=== PATIENT | male | born 1955 | race Caucasian/White ===

== ENCOUNTER 2017-09-29 18:13 | Observation (INO) | payer MEDICARE ==
[2017-09-29 18:53] LABS: BASOPHIL % 0.3 % (0.0-0.4); Basophil (Absolute #) 0.01 (0-0.4); Eosinophil % 0.3 % (0.00-5.0); Eosinophil (Absolute #) 0.01 (0-0.5); Granulocyte Absolute (ANC) 1.11 (1.4-6.9); Granulocytes % 35.8 % (36.0-66.0); Hematocrit 35.8 % (42-50); Lymphocyte (Absolute #) 1.01 (1.0-4.6); Lymphocytes % 32.6 % (24.0-44.0); Mean Cell Volume 84.4 fl (78-100); Mean Corpuscular Hemoglobin 30.7 pg (26-32); Mean Corpuscular Hgb Concent. 36.3 g/dl (32-36); Mean Platelet Volume 10.5 fl (6-9.5); Monocyte (Absolute #) 0.96 (0.0-1.3); Platelet Count 139 K/mm3 (150-450); Red Blood Count 4.24 M/mm3 (4.1-5.6); Red Cell Distribution Width 14.6 % (11.5-14.0); White Blood Count 3.1 K/mm3 (4.0-10.5)
[2017-09-29] MEDS ORDERED: Zofran 4 MG/2 ML VIAL IV STA (19:06)
[2017-09-29 19:17] LABS: ALBUMIN 4.3 g/dL (3.5-5.0); ALKALINE PHOSPHATASE 73 U/L (38-126); ANION GAP 17.2 MEQ/L (5-15); BLOOD UREA NITROGEN 19 mg/dL (9-20); CHLORIDE 92 mmol/L (98-107); Calcium 9.4 mg/dL (8.4-10.2); Carbon Dioxide 25 mmol/L (22-30); Creatinine 1 0.96 mg/dL (0.66-1.25); Glucose 335 mg/dL (74-106); Potassium 4.3 mmol/L (3.5-5.1); SGOT/AST 47 U/L (17-59); SGPT/ALT 48 U/L (0-50); SODIUM 130 mmol/L (137-145); Total Protein 8.9 g/dL (6.3-8.2)
--- NOTE | 2017-09-29 19:20 | ERPHSYRPT ---
- History of Present Illness Time Seen by Provider: 09/29/17 19:13 Historian: patient Exam Limitations: no limitations Patient Subjective Stated Complaint: Chest Pain, Right Arm Numbness, "I have an infection." Triage Nursing Assessment: Pt presents to the ED with complaints of left chest pain, right arm numbness, and states "I have an infection." Pt states hx of low WBC. Pt vague with symptoms. Pt states onset of symptoms x3 weeks. Pt states "I get infections really easily." Pt is A&O x4, no distress noted, skin PWD. Pt denies pain at this time. Physician History: Pt states he has been diagnosed with CIDP ( Chronic Inflammatory Demyelinating Polyneuropathy), also treated with [place] syndrome in the past. " I doi not have an immune system", he states. He noticed insect bite to his left shoulder about 3 weeks go. He states it was a "horsefly" and he pulled maggets out of the wound later, it healed with a scar. Few days later also sustained a tick bite to his right wrist, but that bite healed. He has been c/o left sided chest pain, and numbness, aching pain in his right shoulder and upper arm intermittently ever since. He denies fever, chills, but having nightsweats, and vomits in the morning, denies abdominal pain, rather just aching, no diarrhea, bloody stools, no urinary complaints, but c/o bilateral flank pain as well. Timing/Duration: week(s) (3) Activities at Onset: none Quality: pressure Location: central Chest Pain Radiation: no radiation Severity of Pain-Max: severe Severity of Pain-Current: mild Modifying Factors: Improves With: nothing Associated Symptoms: nausea, vomiting Prior Chest Pain/Cardiac Workup: non-cardiac Nitro Today/Relief: no nitro taken today Aspirin Treatment Today: no aspirin today Allergies/Adverse Reactions: Iodinated Contrast- Oral and IV Dye Allergy (Severe, Verified 09/29/17 18:28) Shortness of Breath Home Medications: Amlodipine Besylate 20 mg PO DAILY 09/29/17 [History] Aspirin 325 mg PO DAILY 09/29/17 [History] Carvedilol 25 mg PO BID 09/29/17 [History] Finasteride 5 mg PO QHS 09/29/17 [History] Lisinopril 20 mg PO BID 09/29/17 [History] Tolterodine Tartrate [Tolterodine Tartrate ER] 4 mg PO DAILY 09/29/17 [History] cloNIDine HCl [Clonidine HCl] 0.2 mg PO Q6H 09/29/17 [History] Hx Tetanus, Diphtheria Vaccination/Date Given: Yes Hx Influenza Vaccination/Date Given: Yes Hx Pneumococcal Vaccination/Date Given: No Immunizations Up to Date: Yes - Review of Systems Constitutional: Night Sweats Respiratory: No Cough, No Dyspnea, No Wheezing Cardiac: Chest Pain, No Edema Abdominal/Gastrointestinal: Nausea, Vomiting All Other Systems: Reviewed and Negative - Past Medical History Pertinent Past Medical History: Yes Neurological History: No Pertinent History ENT History: No Pertinent History Cardiac History: No Pertinent History Respiratory History: No Pertinent History Endocrine Medical History: Diabetes Type II Musculoskeletal History: No Pertinent History GI Medical History: No Pertinent History History: No Pertinent History Psycho-Social History: No Pertinent History Male Reproductive Disorders: No Pertinent History - Past Surgical History Past Surgical History: Yes Neuro Surgical History: No Pertinent History Cardiac: No Pertinent History Respiratory: No Pertinent History Gastrointestinal: No Pertinent History Genitourinary: No Pertinent History Musculoskeletal: No Pertinent History Male Surgical History: No Pertinent History Other Surgical History: Power Port x2, 1 removed. - Social History Smoking Status: Never smoker Exposure to second hand smoke: Yes Drug Use: none Patient Lives Alone: No - Nursing Vital Signs Nursing Vital Signs: Initial Vital Signs Temperature 99.6 F 09/29/17 18:19 Pulse Rate 86 09/29/17 18:19 Respiratory Rate 14 09/29/17 18:19 Blood Pressure 170/91 09/29/17 18:19 O2 Sat by Pulse Oximetry 95 09/29/17 18:19 Pain Scale Pain Intensity 0 - Physical Exam General Appearance: no apparent distress Eye Exam: eyes nml inspection Ears, Nose, Throat Exam: normal ENT inspection, pharynx normal Neck Exam: normal inspection, non-tender, supple, No carotid bruit, No JVD Respiratory Exam: normal breath sounds, lungs clear, airway intact, No chest tenderness, No respiratory distress Cardiovascular Exam: regular rate/rhythm, normal heart sounds, normal peripheral pulses, No murmur Gastrointestinal/Abdomen Exam: soft, normal bowel sounds, No tenderness, No distention, No mass, No guarding Back Exam: normal inspection, No CVA tenderness Extremity Exam: normal inspection, No calf tenderness, No kimberlyn's sign, No pedal edema Neurologic Exam: alert, oriented x 3, normal mood/affect Skin Exam: normal color, warm, dry, other (1 cm dark scar on left lateral shoulder, no other skin lesion, no erythema, swelling.), No rash Lymphatic Exam: No adenopathy SpO2 Interpretation: normal SpO2: 95 Oxygen Delivery: Room Air - Course Nursing assessment & vital signs reviewed: Yes EKG Interpreted by Me: RATE (84/min), Left [place] Deviation, NORMAL INTERVALS, NORMAL ST-T - Radiology Exams Chest X-ray Interpretation: Interpreted by me, Negative Ordered Tests: Active Orders 24 hr Category Date Time Status Manager Social Services STAT Care 09/29/17 18:34 Active Manager Social Services STAT Care 09/29/17 19:07 Active EKG-ER Only STAT Care 09/29/17 18:33 Active IV Insertion STAT Care 09/29/17 18:33 Active IV Insertion STAT Care 09/29/17 19:06 Active Oxygen-ED Only NASAL CANNULA 2 lpm Care 09/29/17 19:06 Active CHEST 1 VIEW (PORTABLE) Stat Exams 09/29/17 18:34 Completed BLOOD CULTURE Stat Lab 09/29/17 19:30 Received CBC W DIFF Stat Lab 09/29/17 18:45 Completed CK-Creatinine Phosphokinase Stat Lab 09/29/17 18:45 Completed CMP Stat Lab 09/29/17 18:45 Completed D-DIMER QUANTITATION Stat Lab 09/29/17 18:45 Completed Lactic Acid Stat Lab 09/29/17 19:35 Completed [place] Screen Stat Lab 09/29/17 18:45 Completed NT PRO BNP Stat Lab 09/29/17 18:45 Completed TROPONIN Q3H Lab 09/29/17 18:45 Completed TROPONIN Q3H Lab 09/29/17 21:45 Ordered UA W/ MICROSCOPIC Stat Lab 09/29/17 21:15 Completed Medication Summary Generic Name Dose Route Start Last Admin Trade Name Freq PRN Reason Stop Dose Admin Sodium Chloride 1,000 mls @ 100 mls/hr 09/29/17 19:15 09/29/17 19:26 Sodium Chloride 0.9% 1000 Ml IV 10/29/17 19:14 100 mls/hr .Q10H TORITO Administration Discontinued Medications Generic Name Dose Route Start Last Admin Trade Name Freq PRN Reason Stop Dose Admin Ondansetron HCl 4 mg 06/22/18 19:06 09/29/17 19:26 Zofran 4 Mg/2 Ml Vial IV 09/29/17 19:07 4 mg STAT STA Administration Ondansetron HCl Confirm 09/29/17 19:22 Zofran 4 Mg/2 Ml Vial Administered 09/29/17 19:23 Dose 4 mg .ROUTE .STK-MED ONE Lab/Rad Data: Laboratory Result Diagrams 09/29/17 18:45 09/29/17 18:45 Laboratory Results 09/29/17 09/29/17 09/29/17 Range/Units 21:15 19:35 18:45 WBC (4.0-10.5) K/mm3 RBC (4.1-5.6) M/mm3 Hgb (12.5-18.0) gm/dl Hct (42-50) % MCV (78-100) fl MCH (26-32) pg MCHC (32-36) g/dl RDW (11.5-14.0) % Plt Count (150-450) K/mm3 MPV (6-9.5) fl Gran % (36.0-66.0) % Eos # (Auto) (0-0.5) Absolute Lymphs (auto) (1.0-4.6) Absolute Monos (auto) (0.0-1.3) Lymphocytes % (24.0-44.0) % Monocytes % (0.0-12.0) % Eosinophils % (0.00-5.0) % Basophils % (0.0-0.4) % Absolute Granulocytes (1.4-6.9) Basophils # (0-0.4) D-Dimer (215-500) ng/mL Sodium (137-145) mmol/L Potassium (3.5-5.1) mmol/L Chloride (98-107) mmol/L Carbon Dioxide (22-30) mmol/L Anion Gap (5-15) MEQ/L BUN (9-20) mg/dL Creatinine (0.66-1.25) mg/dL Estimated GFR ML/MIN Glucose (74-106) mg/dL Lactic Acid 1.1 (0.4-2.0) Calcium (8.4-10.2) mg/dL Total Bilirubin (0.2-1.3) mg/dL AST (17-59) U/L ALT (0-50) U/L Alkaline Phosphatase (38-126) U/L Creatine Kinase 128 (55-170) U/L Troponin I (0.000-0.034) ng/mL NT-Pro-B Natriuret Pep 52.6 (0-900) pg/mL Serum Total Protein (6.3-8.2) g/dL Albumin (3.5-5.0) g/dL Ur Collection Type VOID Urine Color LT.YELLOW (YELLOW) Urine Appearance CLEAR (CLEAR) Urine pH 5.0 (5-6) Ur Specific [place] 1.010 (1.005-1.025) Urine Protein NEGATIVE (Negative) Urine Ketones NEGATIVE (NEGATIVE) Urine Blood NEGATIVE (0-5) Vadim/ul Urine Nitrite NEGATIVE (NEGATIVE) Urine Bilirubin NEGATIVE (NEGATIVE) Urine Urobilinogen NORMAL (0-1) mg/dL Ur Leukocyte Esterase NEGATIVE (NEGATIVE) Ur Epithelial Cells RARE (FEW) /HPF Urine Culture Reflexed YES (NO) Urine Glucose 1000 (NEGATIVE) mg/dL Monoscreen (Negative) Specimen Received 09/29 21:45 09/29/17 09/29/17 09/29/17 Range/Units 18:45 18:45 18:45 WBC (4.0-10.5) K/mm3 RBC (4.1-5.6) M/mm3 Hgb (12.5-18.0) gm/dl Hct (42-50) % MCV (78-100) fl MCH (26-32) pg MCHC (32-36) g/dl RDW (11.5-14.0) % Plt Count (150-450) K/mm3 MPV (6-9.5) fl Gran % (36.0-66.0) % Eos # (Auto) (0-0.5) Absolute Lymphs (auto) (1.0-4.6) Absolute Monos (auto) (0.0-1.3) Lymphocytes % (24.0-44.0) % Monocytes % (0.0-12.0) % Eosinophils % (0.00-5.0) % Basophils % (0.0-0.4) % Absolute Granulocytes (1.4-6.9) Basophils # (0-0.4) D-Dimer 700 H* (215-500) ng/mL Sodium (137-145) mmol/L Potassium (3.5-5.1) mmol/L Chloride (98-107) mmol/L Carbon Dioxide (22-30) mmol/L Anion Gap (5-15) MEQ/L BUN (9-20) mg/dL Creatinine (0.66-1.25) mg/dL Estimated GFR ML/MIN Glucose (74-106) mg/dL Lactic Acid (0.4-2.0) Calcium (8.4-10.2) mg/dL Total Bilirubin (0.2-1.3) mg/dL AST (17-59) U/L ALT (0-50) U/L Alkaline Phosphatase (38-126) U/L Creatine Kinase (55-170) U/L Troponin I < 0.012 (0.000-0.034) ng/mL NT-Pro-B Natriuret Pep (0-900) pg/mL Serum Total Protein (6.3-8.2) g/dL Albumin (3.5-5.0) g/dL Ur Collection Type Urine Color (YELLOW) Urine Appearance (CLEAR) Urine pH (5-6) Ur Specific [place] (1.005-1.025) Urine Protein (Negative) Urine Ketones (NEGATIVE) Urine Blood (0-5) Vadim/ul Urine Nitrite (NEGATIVE) Urine Bilirubin (NEGATIVE) Urine Urobilinogen (0-1) mg/dL Ur Leukocyte Esterase (NEGATIVE) Ur Epithelial Cells (FEW) /HPF Urine Culture Reflexed (NO) Urine Glucose (NEGATIVE) mg/dL Monoscreen NEGATIVE (Negative) Specimen Received 09/29/17 09/29/17 Range/Units 18:45 18:45 WBC 3.1 L (4.0-10.5) K/mm3 RBC 4.24 (4.1-5.6) M/mm3 Hgb 13.0 (12.5-18.0) gm/dl Hct 35.8 L (42-50) % MCV 84.4 (78-100) fl MCH 30.7 (26-32) pg MCHC 36.3 H (32-36) g/dl RDW 14.6 H (11.5-14.0) % Plt Count 139 L (150-450) K/mm3 MPV 10.5 H (6-9.5) fl Gran % 35.8 L (36.0-66.0) % Eos # (Auto) 0.01 (0-0.5) Absolute Lymphs (auto) 1.01 (1.0-4.6) Absolute Monos (auto) 0.96 (0.0-1.3) Lymphocytes % 32.6 (24.0-44.0) % Monocytes % 31.0 H (0.0-12.0) % Eosinophils % 0.3 (0.00-5.0) % Basophils % 0.3 (0.0-0.4) % Absolute Granulocytes 1.11 L (1.4-6.9) Basophils # 0.01 (0-0.4) D-Dimer (215-500) ng/mL Sodium 130 L (137-145) mmol/L Potassium 4.3 (3.5-5.1) mmol/L Chloride 92 L (98-107) mmol/L Carbon Dioxide 25 (22-30) mmol/L Anion Gap 17.2 H (5-15) MEQ/L BUN 19 (9-20) mg/dL Creatinine 0.96 (0.66-1.25) mg/dL Estimated GFR > 60.0 ML/MIN Glucose 335 H (74-106) mg/dL Lactic Acid (0.4-2.0) Calcium 9.4 (8.4-10.2) mg/dL Total Bilirubin 0.90 (0.2-1.3) mg/dL AST 47 (17-59) U/L ALT 48 (0-50) U/L Alkaline Phosphatase 73 (38-126) U/L Creatine Kinase (55-170) U/L Troponin I (0.000-0.034) ng/mL NT-Pro-B Natriuret Pep (0-900) pg/mL Serum Total Protein 8.9 H (6.3-8.2) g/dL Albumin 4.3 (3.5-5.0) g/dL Ur Collection Type Urine Color (YELLOW) Urine Appearance (CLEAR) Urine pH (5-6) Ur Specific [place] (1.005-1.025) Urine Protein (Negative) Urine Ketones (NEGATIVE) Urine Blood (0-5) Vadim/ul Urine Nitrite (NEGATIVE) Urine Bilirubin (NEGATIVE) Urine Urobilinogen (0-1) mg/dL Ur Leukocyte Esterase (NEGATIVE) Ur Epithelial Cells (FEW) /HPF Urine Culture Reflexed (NO) Urine Glucose (NEGATIVE) mg/dL Monoscreen (Negative) Specimen Received - Progress Progress: improved Air Movement: fair Progress Note: 09/29/17 22:35 Pt has been stable, denies SOB,pulsox: 95% on nasal O2 , stable and pain free. I called Dr Arroyo, discussed our findings and his current condition, he agreed to admit him for observation, patient was informed about this, he agreed. Blood Culture(s) Obtained: No Antibiotics given: No Discussed with : Dina Will see patient in: hospital (observation) Counseled pt/family regarding: lab results, diagnosis, rad results - Departure Time of Disposition: 22:38 Departure Disposition: Observation Clinical Impression: Chest pain Qualifiers: Chest pain type: unspecified Qualified Code(s): R07.9 - Chest pain, unspecified Condition: Stable Critical Care Time: No Referrals: DOCTOR,NO FAMILY [Primary Care Provider] - Instructions: Atypical Chest Pain
[2017-09-29] MEDS ORDERED: Zofran 4 MG/2 ML VIAL ONE (19:22)
[2017-09-29] MEDS: Sodium Chloride 0.9% 1000 ML 1,000 ML IV SCH (19:26)
[2017-09-29 19:48] LABS: NT PRO BNP 52.6 pg/mL (0-900)
[2017-09-29 22:08] LABS: Appearance CLEAR (CLEAR); Bilirubin NEGATIVE (NEGATIVE); Glucose 1000 mg/dL (NEGATIVE); Ketones NEGATIVE (NEGATIVE); Leukocyte Esterase NEGATIVE (NEGATIVE); Nitrite NEGATIVE (NEGATIVE); Protein,Urine Dip NEGATIVE (Negative); Urobilinogen NORMAL mg/dL (0-1)
[2017-09-29 22:09] LABS: Blood NEGATIVE Ery/ul (0-5); Epithelial Cells RARE /HPF (FEW)
--- NOTE | 2017-09-29 22:33 | XRAY ---
Indication: Chest pain. Comparison: None Portable chest is clear. Heart is not enlarged. Right-sided Port-A-Cath. Bony thorax intact with mild degenerative changes. Impression: Nonacute chest with chronic features.
[2017-09-29] MEDS ORDERED: ENOXAPARIN SODIUM SQ ONE (22:37)
[2017-09-29] MEDS ORDERED: Senokot-S Tablet PO PRN (22:38)
[2017-09-29] MEDS ORDERED: MILK OF MAGNESIA 30 ML PO PRN (22:38)
[2017-09-29] MEDS ORDERED: MAALOX ES 30 ML UNIT DOSE PO PRN (22:38)
[2017-09-29] MEDS ORDERED: Zofran 4 MG/2 ML VIAL IV PRN (22:38)
[2017-09-29] MEDS ORDERED: TYLENOL 325 MG PO PRN (22:38)
[2017-09-29] MEDS ORDERED: ENOXAPARIN SODIUM SQ SCH (22:45)
[2017-09-30] MEDS ORDERED: Cymbalta 30 MG Capsule PO ONE (01:00)
[2017-09-30] MEDS: NovoLOG Insulin SQ PRN ×3 (01:19→12:18)
[2017-09-30] MEDS: Sodium Chloride 0.9% 1000 ML 1,000 ML IV SCH (05:20)
[2017-09-30 05:48] LABS: Risk Ratio 5.6
--- NOTE | 2017-09-30 09:40 | PCM.DCORD ---
- Discharge Discharge Date: 09/30/17 Prescriptions: Continue Amlodipine Besylate 20 mg PO DAILY Carvedilol 25 mg PO BID Finasteride 5 mg PO QHS Lisinopril 20 mg PO BID cloNIDine HCl [Clonidine HCl] 0.2 mg PO Q6H Tolterodine Tartrate [Tolterodine Tartrate ER] 4 mg PO DAILY Aspirin 650 mg PO DAILY PRN PRN PRN Reason: Chest Pain Insulin Glargine [Lantus Insulin] 60 unit SQ HS Insulin Aspart [Novolog Flexpen] 30 units SQ AC Duloxetine HCl 60 mg PO HS Immun Glob G/Gly/Gluc/Iga 0-50 [Gammagard S-D 10 G (Iga<1) Pita] 50 gm IV WEEKLY Additional Instructions: Ventilation perfusion scan scheduled on 10/02/17 at 10:00 in the Radiology Department. Please arrive 15 minutes early. Come in 10/01 to outpatient services for 30mg Lovenox injection Follow up with: PERRI MONROY [Primary Care Provider] - 10/03/17 2:30 pm
[2017-09-30] MEDS ORDERED: Ecotrin 325 MG PO SCH (10:00)
[2017-09-30] MEDS ORDERED: ENOXAPARIN SODIUM SQ SCH ×2 (10:00→22:00)
[2017-09-30] MEDS ORDERED: Pepcid 20 MG PO SCH (10:00)
[2017-09-30] MEDS ORDERED: [UNRECOGNIZED DRUG - OTHER] IV SCH (10:30)
[2017-09-30] MEDS ORDERED: ASPIRIN PO PRN (10:30)
[2017-09-30] MEDS ORDERED: IMMUNE GLOBULIN IV SCH (10:30)
[2017-09-30] MEDS ORDERED: Ecotrin 325 MG PO PRN (10:43)
[2017-09-30] MEDS ORDERED: COREG 12.5 MG PO SCH (11:00)
[2017-09-30] MEDS ORDERED: Zestril 20 MG PO SCH (11:00)
[2017-09-30] MEDS ORDERED: Ditropan XL 5 MG PO SCH (11:00)
[2017-09-30] MEDS ORDERED: NORVASC 5 MG PO SCH (11:00)
[2017-09-30] MEDS ORDERED: INSULIN ASPART 30 UNIT SQ SCH (11:30)
[2017-09-30] MEDS ORDERED: Catapres 0.1 MG PO SCH (12:00)
[2017-09-30] MEDS: NovoLOG Insulin SQ SCH ×2 (12:18→17:42)
[2017-09-30 16:10] VITALS: BP 118/60; PULSE 68
[2017-09-30 16:32] VITALS: O2SAT 98
--- NOTE | 2017-09-30 20:46 | XRAY ---
Indication: Elevated d-dimer. Two-dimensional sonogram and color Doppler imaging of the major venous vessels of the left and right leg was performed. Comparison: None No thrombus seen in the examined deep venous vessels of the left and right leg including greater saphenous veins. Veins demonstrate normal compressibility. Venous waveforms are normal with and without augmentation. Impression: Left and right legs negative for DVT.
--- NOTE | 2017-09-30 20:48 | XRAY ---
Indication: Elevated d-dimer. Two-dimensional sonogram and color Doppler imaging of the major venous vessels of the left and right upper extremity was performed. Comparison: None No thrombus seen in the jugular, subclavian, axillary, brachial, basilic, cephalic, median cubital, radial, and ulnar veins bilaterally. Veins demonstrate normal compressibility. Venous waveforms are normal with and without augmentation. Impression: Left and right upper extremities negative for DVT.
[2017-09-30] MEDS ORDERED: Lantus Insulin SQ SCH (22:00)
[2017-09-30] MEDS ORDERED: Proscar 5 MG PO SCH (22:00)
[2017-09-30] MEDS ORDERED: Cymbalta 30 MG Capsule PO SCH (22:00)
[2017-10-01] MEDS ORDERED: AMLODIPINE BESYLATE 20 MG PO SCH (10:00)
[2017-10-01] MEDS ORDERED: NON-FORMULARY ITEM (Tolterodine Tartrate [Tolterodine Tartrate Er] 4 MG) PO SCH (10:00)
--- NOTE | 2017-10-03 11:09 | SSS ---
DISCHARGE DIAGNOSES: 1) ELEVATED D-DIMER. 2) CHEST PAIN. 3) CHRONIC INFLAMMATORY DEMYELINATING POLYNEUROPATHY. 4) MONOCYTOSIS. 5) CORONARY ARTERY DISEASE. 6) CONGESTIVE HEART FAILURE. 7) HYPERTENSION. HOSPITAL COURSE: The patient is a 62 year-old white male patient who reports that he has been having problems with discomfort in his chest. He reports he has a port in his right chest which he receives weekly injections for his chronic inflammatory demyelinating polyneuropathy. He reports he is getting gamma globulin injections. He reports that it has been tender and he has been having night sweats. His sugar has been elevated. He is not running any fever but he reports when he gets infections his white blood cell count generally drops. The patient is known to have been in [place] recently in [facility]. [place] for weeks at a time. He apparently also had a bat fly infection in his left shoulder which he had extracted but still has some inflammation in that area. PAST MEDICAL HISTORY: Diabetes mellitus type 2. MEDICATIONS: The patient's medications at home currently including amlodipine 20 mg a day, aspirin 325 mg daily, carvedilol 25 mg b.i.d., finasteride 5 mg at night, lisinopril 20 mg b.i.d., tolterodine tartrate 4 mg a day, clonidine 0.2 mg every six hours. He is apparently on 40 units of NovoLog fast-acting with meals and on 40 of Lantus at night. ALLERGIES: INFLUENZA VIRUS VACCINE. IV DYE. PHYSICAL EXAMINATION: The patient is a well nourished, well developed 62 year-old white male patient who is in no obvious distress. His temperature was noted to be 99.6F initially with pulse of 86, respiratory rate 14, blood pressure 170/91. O2 saturation 95% on room air. HEENT: Normocephalic, atraumatic. Pupils equal round reactive to light. Extraocular movements intact. Oropharynx is pink and moist. NECK: Supple without lymphadenopathy, thyromegaly or JVD. CHEST: Clear to auscultation. There is a port present in his right shoulder. He previously had one removed from his left shoulder that was in for eight years. This currently has been in for also approximately eight years. ABDOMEN: Soft. No palpable masses. EXTREMITIES: Without clubbing, cyanosis or edema. NEUROLOGIC: The patient is alert and oriented x3. LAB DATA AND TESTS: Revealed a lipid panel which was essentially normal with LDL of 71 and HDL 25. His troponins have been less than 0.012. CPK 128. He had mono screen which was negative. His lactic acid was 1.1. He has a glucose of 335, BUN 19, creatinine 0.96. His liver enzymes were normal. Electrolytes were essentially normal as well with a slightly low sodium of 130. He had a D-dimer slightly elevated at 700. His EKG showed borderline left axis deviation but no acute changes and fairly normal progression of R-wave across precordial lead. The patient's CBC showed white blood cell count 3,100, hemoglobin 13.0, PLT count 139,000 which is slightly low. His differential was significantly abnormal with 31% monocytes, 35.8% granulocytes and 32.6% lymphocytes. The patient's chest x-ray was nonacute with chronic features. ASSESSMENT: A patient with: 1) Elevated D-dimer. The patient cannot have a VQ scan to rule out pulmonary embolism due to his allergy to IV dye and we cannot get a VQ scan until Monday. The patient was placed on subcu Lovenox for prophylaxis. We will obtain a Doppler examination of the lower extremities to rule out deep venous thrombosis as well as his right upper extremity due to placement of his port and the possibility of deep venous thrombosis in his right upper extremity. 2) The patient has significant elevation in his lymphocytes and slight decrease in his white cell count, night sweats and other issues with him are concerning for the possibility of parasitic infection or other infection possibly in his port. We will be discharging him from the hospital to follow up at [facility] with Dr. Alvarez for infectious disease. He apparently does have infectious disease specialist near [place] which he has seen in the past and we will try to get records from him as well on previous infections that he may have had. The patient will be discharged with the above plan and to follow up in my office in the next week for further evaluation and management after we had a chance to get his consultation with infectious disease specialist. He has cultures of blood and urine. We will not place him on antibiotics presently since we have no obvious source of infection presently and the potential for infection needs to be sorted out and we do not want to cloud the picture until he has an assessment by the infectious disease specialist.
== END 2017-09-30 17:35 | disposition home or self-care (01) ==
LOC: ED 18:13 → MED SURG 23:09
PROVIDERS: ADMIT Family Medicine; ATTEND Family Medicine
DX: R79.1 Abnormal coagulation profile (principal); R07.9 Chest pain, unspecified; G61.81 Chronic inflammatory demyelinating polyneuritis; D72.821 Monocytosis (symptomatic); I25.10 Atherosclerotic heart disease of native coronary artery without angina pectoris; I50.9 Heart failure, unspecified; I10 Essential (primary) hypertension; E11.9 Type 2 diabetes mellitus without complications; Z79.899 Other long term (current) drug therapy
CPT/HCPCS: 36000; 36415; 71045; 80053; 80061; 81000; 82550; 83605; 83721; 83880; 84484; 85025; 85379; 86308; 87040; 87086; 93005; 93041; 93268; 93970; 94660; 96360; 96361; 96372; 96374; 99285; J1650; J2405; A9270-GY; G0378

== ENCOUNTER 2019-06-27 09:00 | Day surgery (SDC) | payer MEDICARE ==
--- NOTE | 2019-06-25 13:33 | HP ---
DATE OF SURGERY: 06/27/2019 ANTICIPATED PROCEDURE: Port placement. 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 PAST MEDICAL HISTORY: ALLERGIES: NONE. MEDICATIONS: Multiple. PAST SURGICAL HISTORY: None recent. SOCIAL HISTORY: Negative. FAMILY HISTORY: Negative. REVIEW OF SYSTEMS: Hypertension, diabetes. PHYSICAL EXAMINATION: VITAL SIGNS: Normal. CHEST: Clear. COR: Regular. ABDOMEN: Satisfactory. PLAN: Port placement.
[~2019-06-27 09:00] MED LIST: Lactated Ringers 1,000 ML IV ONE; XYLOCAINE 1% HCL 20 ML MDV ONE
[2019-06-27] MEDS ORDERED: Lactated Ringers 1,000 ML IV SCH (09:30)
[2019-06-27] MEDS ORDERED: CEFAZOLIN 2 GM-D5W BAG** 2 GM/50 ML ML IV SCH (09:30)
[2019-06-27] MEDS ORDERED: Versed 2 MG/2 ML Injection ONE (10:12)
[2019-06-27] MEDS ORDERED: SUBLIMAZE 100 MCG/2 ML ONE (10:12)
[2019-06-27] MEDS ORDERED: DIPRIVAN 200 MG/20 ML IV ONE (10:12)
--- NOTE | 2019-06-27 11:15 | XRAY ---
Indication: Port placement. Intraoperative fluoroscopy was provided for 4 seconds. Single digital spot image submitted for interpretation demonstrates partially visualized left Port-A-Cath with tip projecting over the SVC. Correlate with intraoperative findings/report.
[2019-06-27 11:32] VITALS: O2SAT 97
[2019-06-27 12:20] VITALS: BP 123/75; PULSE 61
--- NOTE | 2019-06-28 08:53 | OP ---
SURGERY DATE/TIME: 06/27/2019 1007 PREOPERATIVE DIAGNOSIS: The patient has major neurological condition, has had four ports to date, has limited access and is requiring access weekly. POSTOPERATIVE DIAGNOSIS: The patient has major neurological condition, has had four ports to date, has limited access and is requiring access weekly. PROCEDURE: Left subclavian port placement. SURGEON: Kye Adkins M.D. ANESTHESIA: MAC. COMPLICATIONS: None. CONDITION: Stable. INDICATION: Patient requiring access weekly. DESCRIPTION OF PROCEDURE: Taken to surgery. Routine prep and drape. Venipuncture slightly tedious. It was obtained. It was confirmed fluoroscopic usage. The catheter tip is in the superior vena cava atrial junction with no pneumothorax. Ready to use. Closed with 3-0 Prolene, 3-0 Vicryl, 4-0 Vicryl and Steri-Strips. It was tunneled. It was to the left subclavian.
== END 2019-06-27 12:05 | disposition home or self-care (01) ==
LOC: SDC 09:00
PROVIDERS: ATTEND Surgery
DX: G61.0 Guillain-Barre syndrome (principal); E11.9 Type 2 diabetes mellitus without complications; I10 Essential (primary) hypertension; Z79.899 Other long term (current) drug therapy
CPT/HCPCS: 77001; 82962; J0690; J1642; J2250; J2704; J3010

== ENCOUNTER 2020-02-12 17:51 | Emergency (ER) | payer MEDICARE ==
[2020-02-12] MEDS ORDERED: Sodium Chloride 0.9% 1000 ML 1,000 ML IV STA (17:53)
[2020-02-12] MEDS ORDERED: ROCEPHIN 1 Gm-D5w 50 ml Bag** 1 G/50 ML IVPB IV STA (17:53)
[2020-02-12] MEDS ORDERED: Sodium Chloride 0.9% 1000 ML 1,000 ML ONE (18:12)
[2020-02-12] MEDS ORDERED: ROCEPHIN 1 Gm-D5w 50 ml Bag** 1 G/50 ML IVPB IV ONE (18:12)
[2020-02-12 18:38] LABS: BASOPHIL % 0.2 % (0.0-0.4); Basophil (Absolute #) 0.01 (0-0.4); Eosinophil (Absolute #) 0 (0-0.5); Hematocrit 39.4 % (42-50); Hemoglobin 13.6 gm/dl (12.5-18.0); Lymphocytes % 6.9 % (24.0-44.0); Mean Corpuscular Hgb Concent. 34.5 g/dl (32-36); Mean Platelet Volume 10.3 fl (7.5-11.0); Monocyte (Absolute #) 1.15 (0.0-1.3); Neutrophil % 72.9 % (36.0-66.0); Platelet Count 160 K/mm3 (150-450); Red Blood Count 4.69 M/mm3 (4.1-5.6); Red Cell Distribution Width 16.4 % (11.5-14.0); White Blood Count 5.8 K/mm3 (4.0-10.5)
[2020-02-12 18:53] LABS: ALBUMIN 4.3 g/dL (3.5-5.0); ANION GAP 12.7 MEQ/L (5-15); BILIRUBIN,TOTAL 0.8 mg/dL (0.2-1.3); Calcium 9.4 mg/dL (8.4-10.2); Creatinine 1 1.37 mg/dL (0.66-1.25); EST GLOMERULAR FILTRATION RATE 55.4 ML/MIN; Potassium 4.1 mmol/L (3.5-5.1); Total Protein 9.7 g/dL (6.3-8.2)
[2020-02-12 18:55] LABS: INR 1.26 (0.8-3.0); PROTIME 14.3 SECONDS (8.83-12.87)
[2020-02-12 18:58] LABS: PTT 39.8 SECONDS (24.1-36.1)
[2020-02-12] MEDS ORDERED: Ecotrin 325 MG PO ONE (19:11)
[2020-02-12 19:15] LABS: Group A Strep NOT DETECTED (NEGATIVE)
[2020-02-12] MEDS ORDERED: ENOXAPARIN SODIUM SQ SCH (19:15)
[2020-02-12 19:22] LABS: INFLUENZA A NEGATIVE (NEGATIVE); INFLUENZA B NEGATIVE (NEGATIVE); RESPIRATORY SYNCTIAL VIRUS NEGATIVE (Negative)
[2020-02-12] MEDS ORDERED: ENOXAPARIN SODIUM SQ ONE (19:25)
--- NOTE | 2020-02-12 19:38 | ERPHSYRPT ---
- History of Present Illness Time Seen by Provider: 02/12/20 18:00 Source: patient Exam Limitations: no limitations Patient Subjective Stated Complaint: Pt states "I have been not feeling well lately. I have been having fevers and I have gillean barre." Triage Nursing Assessment: Pt presented alert and oriented X 3, skin pwd pt presented alert and oriented X 3, skin pale, cool, clammy. PT slightly tacypneic. Pt has gerneralized weakness. Physician History: And states that I have not been feeling well for last couple of days. Today have a fever with chills and I am hurting all over. I think I have a flu. 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 Timing/Duration: day(s) (2) Severity: severe Associated Symptoms: nausea, chills, chest pain, fever, headaches, malaise, weakness, No vomiting, No abdominal pain, No shortness of breath, No heartburn, No diaphoresis, No cough, No loss of appetite, No rash, No syncope, No seizure Allergies/Adverse Reactions: Influenza Virus Vaccines Allergy (Severe, Verified 06/27/19 09:34) Iodinated Contrast Media [Iodinated Contrast- Oral and IV Dye] Allergy (Severe, Verified 06/27/19 09:34) Shortness of Breath Home Medications: Amitriptyline HCl 10 mg [Elavil 10 mg] 10 mg PO BID 06/26/19 [History] Amlodipine Besylate [Norvasc] 10 mg PO DAILY 06/26/19 [History] Duloxetine HCl 30 mg [Cymbalta 30 MG Capsule] 60 mg PO DAILY 06/26/19 [History] Finasteride 5 mg [Proscar 5 MG] 5 mg PO DAILY 06/26/19 [History] Gabapentin [Neurontin] 200 mg PO TID 06/26/19 [History] Immune Globul G/Gly/Iga Avg 46 [Gamunex-C 10 Gram/100 ml Vial] 50 gm IJ WEEKLY 06/26/19 [History] Insulin Degludec [Tresiba Flextouch U-200] 80 unit SQ BREAKFAST 06/26/19 [History] Insulin NPH Human Isophane [Novolin N Flexpen] 30 units SQ TIDWMEALS 06/26/19 [History] Smz/Tmp Ds Tablet [Bactrim Ds Tablet] 1 udtab PO DAILY 06/26/19 [History] carvediloL [Carvedilol] 25 mg PO BID 06/26/19 [History] cloNIDine HCL [Clonidine HCl] 0.2 mg PO TID 06/26/19 [History] Hx Tetanus, Diphtheria Vaccination/Date Given: Yes Hx Influenza Vaccination/Date Given: No Hx Pneumococcal Vaccination/Date Given: No Immunizations Up to Date: Yes Travel Risk - International Travel Have you traveled outside of the country in past 3 weeks: No - Coronavirus Screening Are you exhibiting any of the following symptoms?: Yes Symptoms: Fever Close contact with a COVID-19 positive Pt in past 14-21 Days: No - Review of Systems Constitutional: Chills Eyes: No Symptoms Ears, Nose, & Throat: No Symptoms Respiratory: No Cough, No Dyspnea Cardiac: No Chest Pain, No Edema, No Syncope Abdominal/Gastrointestinal: No Abdominal Pain, No Nausea, No Vomiting, No Diarrhea Genitourinary Symptoms: No Dysuria Musculoskeletal: No Back Pain, No Neck Pain Skin: No Rash Neurological: No Dizziness, No Focal Weakness, No Sensory Changes Psychological: No Symptoms Endocrine: No Symptoms All Other Systems: Reviewed and Negative - Past Medical History Pertinent Past Medical History: Yes Neurological History: Other ENT History: No Pertinent History Cardiac History: Hypertension Respiratory History: No Pertinent History Endocrine Medical History: Diabetes Type II Musculoskeletal History: Arthritis GI Medical History: No Pertinent History History: Other Psycho-Social History: Depression Male Reproductive Disorders: No Pertinent History Other Medical History: Parker Chatman, "Thickened heart wall due to being bitten by Granado bug in [facility]". CIPD (Chronic Inflammatory Demyelinating Polyneuropathy) - Past Surgical History Past Surgical History: Yes Neuro Surgical History: No Pertinent History Cardiac: No Pertinent History Respiratory: No Pertinent History Gastrointestinal: No Pertinent History Genitourinary: No Pertinent History Musculoskeletal: No Pertinent History Male Surgical History: No Pertinent History Other Surgical History: Power Port x4 placed over 17 years and removed , has broken two disc in back with a fall - Social History Smoking Status: Never smoker Exposure to second hand smoke: No Drug Use: marijuana Patient Lives Alone: No - Nursing Vital Signs Nursing Vital Signs: Initial Vital Signs Temperature 99.3 F 02/12/20 17:51 Pulse Rate 86 02/12/20 17:51 Respiratory Rate 24 02/12/20 17:51 Blood Pressure 178/96 02/12/20 17:51 O2 Sat by Pulse Oximetry 97 02/12/20 17:51 Pain Scale Pain Intensity 4 - Physical Exam General Appearance: no apparent distress, alert Eye Exam: PERRL/EOMI, eyes nml inspection Ears, Nose, Throat Exam: normal ENT inspection, TMs normal, pharynx normal, moist mucous membranes Neck Exam: normal inspection, non-tender, supple, full range of motion Respiratory Exam: normal breath sounds, lungs clear, No respiratory distress Cardiovascular Exam: regular rate/rhythm, normal heart sounds, normal peripheral pulses Gastrointestinal/Abdomen Exam: soft, normal bowel sounds, No tenderness, No mass, No ecchymosis, No pulsatile mass Back Exam: normal inspection, normal range of motion, No CVA tenderness, No vertebral tenderness Extremity Exam: normal inspection, normal range of motion, pelvis stable, No contusions Neurologic Exam: alert, oriented x 3, cooperative, normal mood/affect, nml cerebellar function, nml station & gait, sensation nml, No motor deficits, No sensory deficit, No disoriented, No confusion, No agitation, No uncooperative Skin Exam: normal color, warm, dry, No rash Lymphatic Exam: No adenopathy SpO2 Interpretation: normal SpO2: 95 O2 Delivery: Room Air - Course Nursing assessment & vital signs reviewed: Yes EKG Interpreted by Me: RATE ([id number]), NORMAL AXIS, NORMAL INTERVALS, NORMAL QRS, NORMAL ST-T, Non-specific ST Changes - Radiology Exams Chest X-ray Interpretation: Negative Ordered Tests: Active Orders 24 hr Category Date Time Status EKG-ER Only STAT Care 02/12/20 17:53 Active IV Insertion STAT Care 02/12/20 17:53 Active CHEST 1 VIEW (PORTABLE) Stat Exams 02/12/20 17:54 Taken CTA CHEST W AND/OR WO [CT] Stat Exams 02/12/20 19:54 Ordered BLOOD CULTURE Stat Lab 02/12/20 18:15 Received CBC W DIFF Stat Lab 02/12/20 18:02 Completed CMP Stat Lab 02/12/20 18:02 Completed D-DIMER QUANTITATIVE Stat Lab 02/12/20 18:02 Completed Lactic Acid Stat Lab 02/12/20 17:53 Completed POCT GLUCOSE Stat Lab 02/12/20 18:01 Completed PROTIME WITH INR Stat Lab 02/12/20 18:02 Completed PTT Stat Lab 02/12/20 18:02 Completed TROPONIN Q3H Lab 02/12/20 18:02 Completed TROPONIN Q3H Lab 02/12/20 21:00 Ordered UA W/RFX UR CULTURE Stat Lab 02/12/20 19:44 Ordered Medication Summary Generic Name Dose Route Start Last Admin Trade Name Freq PRN Reason Stop Dose Admin Enoxaparin Sodium 120 mg 02/12/20 19:15 02/12/20 19:29 Enoxaparin Sodium 1 mg/kg (120 mg) 03/13/20 19:14 120 mg SQ Administration Q24H TORITO Discontinued Medications Generic Name Dose Route Start Last Admin Trade Name Freq PRN Reason Stop Dose Admin Aspirin 325 mg 02/12/20 19:11 02/12/20 19:29 Ecotrin 325 Mg PO 02/12/20 19:12 325 mg STAT ONE Administration Enoxaparin Sodium Confirm 02/12/20 19:25 Enoxaparin Sodium Administered 02/12/20 19:26 Dose 120 mg SQ .STK-MED ONE Sodium Chloride 1,000 mls @ 999 mls/hr 02/12/20 17:53 02/12/20 18:27 Sodium Chloride 0.9% 1000 Ml IV 02/12/20 18:53 999 mls/hr .Q1H1M STA Administration Ceftriaxone Sodium/Dextrose 1 g in 50 mls @ 100 mls/hr 02/12/20 17:53 02/12/20 19:06 Rocephin 1 Gm-D5w 50 Ml Bag IV 02/12/20 18:22 Infused STAT STA Infusion Sodium Chloride Confirm 02/12/20 18:12 Sodium Chloride 0.9% 1000 Ml Administered 02/12/20 18:13 Dose 1,000 mls @ ud .ROUTE .STK-MED ONE Ceftriaxone Sodium/Dextrose Confirm 02/12/20 18:12 Rocephin 1 Gm-D5w 50 Ml Bag Administered 02/12/20 18:13 Dose 1 g in 50 mls @ ud IV .STK-MED ONE Lab/Rad Data: Laboratory Result Diagrams 02/12/20 18:02 02/12/20 18:02 Laboratory Results 02/12/20 02/12/20 02/12/20 Range/Units 18:25 18:02 18:02 WBC (4.0-10.5) K/mm3 RBC (4.1-5.6) M/mm3 Hgb (12.5-18.0) gm/dl Hct (42-50) % MCV (78-100) fl MCH (26-32) pg MCHC (32-36) g/dl RDW (11.5-14.0) % Plt Count (150-450) K/mm3 MPV (7.5-11.0) fl Gran % (36.0-66.0) % Eos # (Auto) (0-0.5) Absolute Lymphs (auto) (1.0-4.6) Absolute Monos (auto) (0.0-1.3) Lymphocytes % (24.0-44.0) % Monocytes % (0.0-12.0) % Eosinophils % (0.00-5.0) % Basophils % (0.0-0.4) % Absolute Granulocytes (1.4-6.9) Basophils # (0-0.4) PT 14.3 H (8.83-12.87) SECONDS INR 1.26 (0.8-3.0) APTT 39.8 H (24.1-36.1) SECONDS D-Dimer 2137 H* (215-500) ng/mL Sodium (137-145) mmol/L Potassium (3.5-5.1) mmol/L Chloride (98-107) mmol/L Carbon Dioxide (22-30) mmol/L Anion Gap (5-15) MEQ/L BUN (9-20) mg/dL Creatinine (0.66-1.25) mg/dL Estimated GFR ML/MIN Glucose (74-106) mg/dL POC Glucometer (74 to 106) mg/dL Lactic Acid (0.4-2.0) Calcium (8.4-10.2) mg/dL Total Bilirubin (0.2-1.3) mg/dL AST (17-59) U/L ALT (0-50) U/L Alkaline Phosphatase (38-126) U/L Troponin I 0.043 H* (0.000-0.034) ng/mL Serum Total Protein (6.3-8.2) g/dL Albumin (3.5-5.0) g/dL Influenza Type A Ag NEGATIVE (NEGATIVE) Influenza Type B Ag NEGATIVE (NEGATIVE) RSV (PCR) NEGATIVE (Negative) Group A Strep Antibody NOT DETECTED (NEGATIVE) 02/12/20 02/12/20 02/12/20 Range/Units 18:02 18:02 18:01 WBC 5.8 (4.0-10.5) K/mm3 RBC 4.69 (4.1-5.6) M/mm3 Hgb 13.6 (12.5-18.0) gm/dl Hct 39.4 L (42-50) % MCV 84.0 (78-100) fl MCH 29.0 (26-32) pg MCHC 34.5 (32-36) g/dl RDW 16.4 H (11.5-14.0) % Plt Count 160 (150-450) K/mm3 MPV 10.3 (7.5-11.0) fl Gran % 72.9 H (36.0-66.0) % Eos # (Auto) 0 (0-0.5) Absolute Lymphs (auto) 0.40 L (1.0-4.6) Absolute Monos (auto) 1.15 (0.0-1.3) Lymphocytes % 6.9 L (24.0-44.0) % Monocytes % 20.0 H (0.0-12.0) % Eosinophils % 0.0 (0.00-5.0) % Basophils % 0.2 (0.0-0.4) % Absolute Granulocytes 4.20 (1.4-6.9) Basophils # 0.01 (0-0.4) PT (8.83-12.87) SECONDS INR (0.8-3.0) APTT (24.1-36.1) SECONDS D-Dimer (215-500) ng/mL Sodium 129 L (137-145) mmol/L Potassium 4.1 (3.5-5.1) mmol/L Chloride 94 L (98-107) mmol/L Carbon Dioxide 26 (22-30) mmol/L Anion Gap 12.7 (5-15) MEQ/L BUN 30 H (9-20) mg/dL Creatinine 1.37 H (0.66-1.25) mg/dL Estimated GFR 55.4 ML/MIN Glucose 205 H (74-106) mg/dL POC Glucometer 207 H (74 to 106) mg/dL Lactic Acid (0.4-2.0) Calcium 9.4 (8.4-10.2) mg/dL Total Bilirubin 0.80 (0.2-1.3) mg/dL AST 45 (17-59) U/L ALT 34 (0-50) U/L Alkaline Phosphatase 90 (38-126) U/L Troponin I (0.000-0.034) ng/mL Serum Total Protein 9.7 H (6.3-8.2) g/dL Albumin 4.3 (3.5-5.0) g/dL Influenza Type A Ag (NEGATIVE) Influenza Type B Ag (NEGATIVE) RSV (PCR) (Negative) Group A Strep Antibody (NEGATIVE) 02/12/20 Range/Units 17:53 WBC (4.0-10.5) K/mm3 RBC (4.1-5.6) M/mm3 Hgb (12.5-18.0) gm/dl Hct (42-50) % MCV (78-100) fl MCH (26-32) pg MCHC (32-36) g/dl RDW (11.5-14.0) % Plt Count (150-450) K/mm3 MPV (7.5-11.0) fl Gran % (36.0-66.0) % Eos # (Auto) (0-0.5) Absolute Lymphs (auto) (1.0-4.6) Absolute Monos (auto) (0.0-1.3) Lymphocytes % (24.0-44.0) % Monocytes % (0.0-12.0) % Eosinophils % (0.00-5.0) % Basophils % (0.0-0.4) % Absolute Granulocytes (1.4-6.9) Basophils # (0-0.4) PT (8.83-12.87) SECONDS INR (0.8-3.0) APTT (24.1-36.1) SECONDS D-Dimer (215-500) ng/mL Sodium (137-145) mmol/L Potassium (3.5-5.1) mmol/L Chloride (98-107) mmol/L Carbon Dioxide (22-30) mmol/L Anion Gap (5-15) MEQ/L BUN (9-20) mg/dL Creatinine (0.66-1.25) mg/dL Estimated GFR ML/MIN Glucose (74-106) mg/dL POC Glucometer (74 to 106) mg/dL Lactic Acid 2.1 H (0.4-2.0) Calcium (8.4-10.2) mg/dL Total Bilirubin (0.2-1.3) mg/dL AST (17-59) U/L ALT (0-50) U/L Alkaline Phosphatase (38-126) U/L Troponin I (0.000-0.034) ng/mL Serum Total Protein (6.3-8.2) g/dL Albumin (3.5-5.0) g/dL Influenza Type A Ag (NEGATIVE) Influenza Type B Ag (NEGATIVE) RSV (PCR) (Negative) Group A Strep Antibody (NEGATIVE) - Progress Progress: improved, re-examined Progress Note: 02/12/20 19:40 I am on phone with [facility] 02/12/20 19:48 For center at [facility] told me that she will call me back when Dr. Corey SKAGGS calls her back 02/12/20 19:55 Dr Arechiga at [facility] ER accepted the patient. We will transfer the patient by ambulance. He told me to get CTA of the chest before transferring the patient and push the films to cloud. Counseled pt/family regarding: lab results, diagnosis, rad results - Departure Departure Disposition: Transfer Clinical Impression: Non-STEMI (non-ST elevated myocardial infarction) Fever Qualifiers: Fever type: unspecified Qualified Code(s): R50.9 - Fever, unspecified Condition: Stable Critical Care Time: No Referrals: PERRI MONROY [Primary Care Provider] -
[2020-02-12 20:12] VITALS: BP 205/87; PULSE 83; O2SAT 93
[2020-02-12 20:24] LABS: Appearance SLIGHTLY CLOUDY (CLEAR); Bacteria FEW /HPF (NEGATIVE); Bilirubin NEGATIVE (NEGATIVE); Blood SMALL Ery/ul (0-5); Epithelial Cells RARE /HPF (FEW); Glucose 150 mg/dL (NEGATIVE); Ketones NEGATIVE (NEGATIVE); Leukocyte Esterase MODERATE (NEGATIVE); Mucus SLIGHT /HPF (NEGATIVE); Nitrite NEGATIVE (NEGATIVE); Protein,Urine Dip 100 (Negative); Specific Gravity 1.021 (1.005-1.025); Urobilinogen NEGATIVE mg/dL (0-1); WBC 26-50 /HPF (0-5)
[2020-02-12 22:30] LABS: Slide Review 1 YES
--- NOTE | 2020-02-13 08:43 | XRAY ---
Indication: Fever and weakness. Suspect Covid 19. Comparison: September 29, 2017. Portable chest underinflated crowding lung bases. Remaining heart and lungs unremarkable with new left Port-A-Cath. Bony thorax intact.
== END 2020-02-12 21:00 | disposition short-term general hospital (02) ==
LOC: ED 17:51
DX: I21.4 Non-ST elevation (NSTEMI) myocardial infarction (principal); R50.9 Fever, unspecified; R51.9 Headache, unspecified; I10 Essential (primary) hypertension; E11.9 Type 2 diabetes mellitus without complications; D68.9 Coagulation defect, unspecified; G61.0 Guillain-Barre syndrome; Z79.899 Other long term (current) drug therapy
CPT/HCPCS: 0100U; 36000; 36415; 71045; 80053; 81001; 82947; 83605; 84484; 85025; 85379; 85610; 85730; 87040; 87077; 87086; 87186; 87631; 87651; 93005; 96365; 96372; 99285; 87633; J0696; J1650; A9270-GY

== ENCOUNTER 2020-04-23 11:32 | Day surgery (SDC) | payer MEDICARE ==
--- NOTE | 2020-04-22 15:41 | HP ---
DATE OF SURGERY: 04/23/2020 HISTORY OF PRESENT ILLNESS: The patient presents with a malfunctioning port. He uses this port weekly for IV Ig infusion. He has history of chronic inflammatory demyelinating polyneuropathy (CIDP). He has inadequate access now and his port is malfunctioning. PAST MEDICAL HISTORY: Diabetes. Chronic inflammatory demyelination neuropathy, degenerative disc, hypertension, benign prostatic hypertrophy, anxiety. PAST SURGICAL HISTORY: Tonsillectomy. Numerous port insertions. ALLERGIES: INFLUENZA VIRUS VACCINE. IODINATED CONTRAST MEDIA. MEDICATIONS: Amlodipine, carvedilol, clonidine, duloxetine, finasteride, gabapentin, Lisinopril, lorazepam, meloxicam, Novolog, Nufola Tresiba. FAMILY HISTORY: Heart disease, lung cancer. SOCIAL HISTORY: Negative. REVIEW OF SYSTEMS: CONSTITUTIONAL: Denies fever or chills. CHEST: Denies shortness of breath. CVS: Denies chest pain. ABDOMEN: Denies abdominal pain, nausea, vomiting, diarrhea, constipation or rectal bleeding. INTEGUMENTARY: Negative. PHYSICAL EXAMINATION: GENERAL: No acute distress. CHEST: Nonlabored. No shortness of breath. CVS: Regular rate and rhythm. ABDOMEN: Soft, nontender to palpation. EXTREMITIES: No edema. NEUROLOGIC: Alert. PSYCHIATRIC: Appropriate. IMPRESSION: Malfunctioning port and inadequate access for long-term IV infusion. PLAN: Port removal and port placement with Dr. Kye Adkins. As dictated by Monica Fu NP.
[2020-04-23] MEDS ORDERED: Lactated Ringers 1,000 ML IV SCH (12:00)
[2020-04-23] MEDS ORDERED: CEFAZOLIN 2 GM-D5W BAG** 2 GM/50 ML ML IV SCH (12:00)
[2020-04-23 12:04] VITALS: BP 163/85; PULSE 78; O2SAT 94
== END 2020-04-23 16:07 | disposition home or self-care (01) ==
LOC: SDC 11:32
PROVIDERS: ATTEND Surgery
DX: Z53.8 Procedure and treatment not carried out for other reasons (principal)
CPT/HCPCS: 82947; J0690; J1642

== ENCOUNTER 2020-04-30 09:32 | Day surgery (SDC) | payer MEDICARE ==
--- NOTE | 2020-04-30 08:23 | HP ---
DATE OF SURGERY: 04/30/2020 HISTORY OF PRESENT ILLNESS: The patient presents with a malfunctioning port. He has history of Guillain-Anatone Disease and chronic inflammatory demyelinating polyneuropathy (CIDT). He reports needing weekly infusions of IV IT. States port is not functioning properly. PAST MEDICAL HISTORY: Diabetes, chronic inflammatory demyelinating polyneuropathy, degenerative disc. PAST SURGICAL HISTORY: Tonsillectomy. Compound fracture repair. He has had four to five ports in the past. FAMILY HISTORY: Heart disease, lung cancer. SOCIAL HISTORY: Negative. Reports chewing tobacco. MEDICATIONS: Aspirin, Advil, Catapres, Coreg, Cymbalta, Norvasc, NovoLog, Amlodipine, duloxetine, Clonidine, Lisinopril, Nufola, meloxicam, Tresiba. ALLERGIES: INFLUENZA VIRUS VACCINES. IOSINATED CONTRAST MEDIA. REVIEW OF SYSTEMS: CONSTITUTIONAL: Denies fever or chills. CHEST: Denies shortness of breath. HEART: Denies chest pain. ABDOMEN: Denies abdominal pain, nausea, vomiting, diarrhea, constipation or rectal bleeding. INTEGUMENTARY: Negative. PHYSICAL EXAMINATION: GENERAL: No acute distress. CHEST: Nonlabored. No shortness of breath. HEART: Regular rate and rhythm. ABDOMEN: Soft, nontender to palpation. EXTREMITIES: No edema. NEURO: Alert. PSYCH: Appropriate. IMPRESSION: Malfunctioning port, inadequate access for venous infusion. PLAN: Port removal and port placement with Dr. Kye Adkins. As dictated by Monica Fu NP.
[~2020-04-30 09:32] MED LIST changes: +DIPRIVAN 200 MG/20 ML IV ONE; +SUBLIMAZE 100 MCG/2 ML ONE; +Versed 2 MG/2 ML Injection ONE
[2020-04-30] MEDS ORDERED: CEFAZOLIN 2 GM-D5W BAG** 2 GM/50 ML ML IV ONE (09:50)
[2020-04-30] MEDS ORDERED: Lactated Ringers 1,000 ML IV ONE (09:50)
[2020-04-30] MEDS ORDERED: Lactated Ringers 1,000 ML IV SCH (10:00)
[2020-04-30] MEDS ORDERED: CEFAZOLIN 2 GM-D5W BAG** 2 GM/50 ML ML IV SCH (10:00)
[2020-04-30] MEDS ORDERED: DIPRIVAN 200 MG/20 ML IV ONE ×2 (11:07→11:40)
[2020-04-30] MEDS ORDERED: Xylocaine 1% Vial 30 ML PF IJ ONE (11:22)
--- NOTE | 2020-04-30 12:06 | XRAY ---
Indication: Port placement. Intraoperative fluoroscopy provided for 6 seconds. Single digital spot image demonstrates left-sided Port-A-Cath with tip of catheter projecting over the SVC. Correlate with intraoperative findings/report.
[2020-04-30 13:00] VITALS: BP 132/67; PULSE 62; O2SAT 97
--- NOTE | 2020-05-01 09:01 | OP ---
SURGERY DATE/TIME: 04/30/2020 1053 PREOPERATIVE DIAGNOSIS: Nonfunctional Port-A-Cath. POSTOPERATIVE DIAGNOSIS: Nonfunctional Port-A-Cath. PROCEDURES: 1) Attempted right subclavian catheter site unsuccessful. 2) Left Port-A-Cath placement and removal of previous left Port-A-Cath successful. SURGEON: Kye Adkins M.D. ANESTHESIA: General. COMPLICATIONS: None. CONDITION: Stable. INDICATION: A patient requiring a new port as this port is not functional. DESCRIPTION OF PROCEDURE: Routine prep and drape. Time out performed. Right subclavian attempted with several punctures this was not cannulated. Moving back to the left side, the previous catheter was wired. A new port was placed in the previous pocket. A new catheter was placed. It aspirated nicely, flushed nicely. Tip was in the superior vena cava. No pneumothorax. Working satisfactorily.
== END 2020-04-30 13:10 | disposition home or self-care (01) ==
LOC: SDC 09:32
PROVIDERS: ATTEND Surgery
DX: T82.514A Breakdown (mechanical) of infusion catheter, initial encounter (principal); E11.9 Type 2 diabetes mellitus without complications; Z86.69 Personal history of other diseases of the nervous system and sense organs; G61.81 Chronic inflammatory demyelinating polyneuritis; Z79.899 Other long term (current) drug therapy
CPT/HCPCS: 36582; 77001; 82947; C1788; J0690; J1642; J2001; J2250; J2704; J3010

== ENCOUNTER 2020-05-28 07:15 | Day surgery (SDC) | payer MEDICARE ==
--- NOTE | 2020-05-21 09:58 | HP ---
DATE OF SURGERY: 05/28/2020 HISTORY OF PRESENT ILLNESS: The patient presents with a malfunctioning port. It appears that he had one placed late in 2019. He uses this port for weekly infusions for chronic inflammatory demyelinating polyneuropathy syndrome. Port is malfunctioning and needs to be replaced. PAST MEDICAL HISTORY: Diabetes, chronic inflammatory demyelinating polyneuropathy, hypertension, benign prostatic hypertrophy, depression, neuropathy, anxiety. PAST SURGICAL HISTORY: Tonsillectomy. Multiple ports. ALLERGIES: IODINE. MEDICATIONS: Amlodipine, carvedilol, clonidine, duloxetine, finasteride, gabapentin, Lisinopril, lorazepam, meloxicam, NovoLog, Tresiba. FAMILY HISTORY: Heart disease. Lung cancer. SOCIAL HISTORY: Negative. REVIEW OF SYSTEMS: CONSTITUTIONAL: Denies fever or chills. CHEST: Denies shortness of breath. CVS: Denies chest pain. ABDOMEN: Denies abdominal pain, nausea, vomiting, diarrhea, constipation or rectal bleeding. INTEGUMENTARY: Negative. PHYSICAL EXAMINATION: GENERAL: No acute distress. CHEST: Nonlabored. No shortness of breath. CVS: Regular rate and rhythm. ABDOMEN: Soft, nontender to palpation. EXTREMITIES: No edema. NEUROLOGIC: Alert. PSYCHIATRIC: Appropriate. IMPRESSION: Malfunctioning port and inadequate access for venous infusion. PLAN: Port removal and port insertion by Dr. Kye Adkins. As dictated by Monica Fu NP.
[~2020-05-28 07:15] MED LIST changes: -DIPRIVAN 200 MG/20 ML IV ONE; -SUBLIMAZE 100 MCG/2 ML ONE; -Versed 2 MG/2 ML Injection ONE
[2020-05-28] MEDS ORDERED: Lactated Ringers 1,000 ML IV ONE (07:55)
[2020-05-28] MEDS ORDERED: CEFAZOLIN 2 GM-D5W BAG** 2 GM/50 ML ML IV ONE (07:59)
[2020-05-28] MEDS ORDERED: CEFAZOLIN 2 GM-D5W BAG** 2 GM/50 ML ML IV SCH (08:00)
[2020-05-28] MEDS ORDERED: Lactated Ringers 1,000 ML IV SCH (08:00)
[2020-05-28] MEDS ORDERED: DIPRIVAN 200 MG/20 ML IV ONE ×2 (09:27→09:49)
[2020-05-28] MEDS ORDERED: Versed 2 MG/2 ML Injection ONE (09:28)
[2020-05-28] MEDS ORDERED: SUBLIMAZE 100 MCG/2 ML ONE (09:28)
--- NOTE | 2020-05-28 10:26 | XRAY ---
Indication: Port placement. Intraoperative fluoroscopy provided for 3 seconds. Single digital spot image submitted for interpretation demonstrates partially visualized left Port-A-Cath with tip projecting over the proximal SVC. Correlate with intraoperative findings/report.
--- NOTE | 2020-05-28 10:43 | OP ---
SURGERY DATE/TIME: 05/28/2020 0928 PREOPERATIVE DIAGNOSIS: Nonfunctioning Port-A-Cath. POSTOPERATIVE DIAGNOSIS: Nonfunctioning Port-A-Cath. PROCEDURE: Port removal and replacement. SURGEON: Kye Adkins M.D. ANESTHESIA: MAC. COMPLICATIONS: None. CONDITION: Stable. DESCRIPTION OF PROCEDURE: Placement of an entirely new Port-A-Cath with a left internal jugular ultrasound guided approach. The catheter was then tunneled down to the chest wall. The old port site was used. The old port was removed and the new port was placed. It was secured at 30 cm. It aspirated nicely. It flushed nicely. The tip was in the mid superior vena cava longterm between the superior vena cava origin and the atrium. No pneumothorax. The patient tolerated the procedure satisfactorily. Secured with 3-0 Prolene, 3-0 Vicryl, 4-0 Vicryl and Steri-Strips. Aspirated nicely. Flushed nicely. The was called at home postoperatively.
[2020-05-28 11:19] VITALS: O2SAT 97
[2020-05-28 11:20] VITALS: BP 135/71; PULSE 58
== END 2020-05-28 11:30 | disposition home or self-care (01) ==
LOC: SDC 07:15
PROVIDERS: ATTEND Surgery
DX: T82.594A Other mechanical complication of infusion catheter, initial encounter (principal); G61.81 Chronic inflammatory demyelinating polyneuritis; E11.9 Type 2 diabetes mellitus without complications; I10 Essential (primary) hypertension; Z79.899 Other long term (current) drug therapy
CPT/HCPCS: 36585; 76937; 77001; 82947; C1788; J0690; J1642; J2250; J2704; J3010

== ENCOUNTER 2022-06-15 09:31 | Day surgery (SDC) | payer MEDICARE ==
[2022-06-15] MEDS ORDERED: LIDOCAINE HCL 2% 100 MG/5 ML IJ ONE (09:32)
[2022-06-15] MEDS ORDERED: Depo-Medrol 40 MG/ML IM ONE (09:32)
[2022-06-15] MEDS ORDERED: DIPRIVAN 200 MG/20 ML IV ONE (11:14)
--- NOTE | 2022-06-15 12:42 | XRAY ---
Indication: Bilateral L4-S1 MBB. Intraoperative fluoroscopy provided for 11 seconds. Single digital spot image submitted for interpretation demonstrates posterior needle tips projecting over the expected left and right L4-S1 nerve roots. Correlate with intraoperative findings/report.
--- NOTE | 2022-06-15 12:58 | XRAY ---
11 seconds of fluoroscopy was used in surgery for a bilateral L4-S1 MBB.
[2022-06-15] MEDS ORDERED: Lactated Ringers 1,000 ML IV ONE (13:54)
== END 2022-06-15 11:50 | disposition home or self-care (01) ==
LOC: SDC-PAIN 09:31
PROVIDERS: ATTEND Psychiatry & Neurology Pain Medicine
DX: M47.816 Spondylosis without myelopathy or radiculopathy, lumbar region (principal); E11.9 Type 2 diabetes mellitus without complications; Z79.899 Other long term (current) drug therapy
CPT/HCPCS: 64493; 64494; 72020; 77002; 82947; J1030; J2704

== ENCOUNTER 2022-07-13 09:02 | Day surgery (SDC) | payer MEDICARE ==
[2022-07-13] MEDS ORDERED: BUPIVACAINE 0.5% VIAL IJ ONE (09:03)
[2022-07-13] MEDS ORDERED: Lactated Ringers 1,000 ML IV ONE (10:39)
[2022-07-13] MEDS ORDERED: DIPRIVAN 200 MG/20 ML IV ONE (11:11)
--- NOTE | 2022-07-13 14:30 | XRAY ---
Indication: Bilateral L4-S1 MBB. Interoperative fluoroscopy provided for 13 seconds. Single digital spot image submitted for interpretation demonstrates posterior needle tips projecting over the expected left and right L4-S1 nerve roots. Correlate with intraoperative findings/report.
--- NOTE | 2022-07-13 14:56 | XRAY ---
13 seconds of fluoroscopy was used in surgery for a bilateral L4-S1 MBB.
== END 2022-07-13 11:45 | disposition home or self-care (01) ==
LOC: SDC-PAIN 09:02
PROVIDERS: ATTEND Psychiatry & Neurology Pain Medicine
DX: M47.816 Spondylosis without myelopathy or radiculopathy, lumbar region (principal); E11.9 Type 2 diabetes mellitus without complications; Z79.899 Other long term (current) drug therapy
CPT/HCPCS: 64493; 64494; 72020; 77002; 82947; J1642; J2704

== ENCOUNTER 2022-08-17 08:58 | Day surgery (SDC) | payer MEDICARE ==
[2022-08-17] MEDS ORDERED: BUPIVACAINE 0.5% VIAL IJ ONE (08:59)
[2022-08-17] MEDS ORDERED: LIDOCAINE HCL 1% 50 MG/5 ML VL PF IJ ONE (08:59)
[2022-08-17] MEDS ORDERED: Depo-Medrol 40 MG/ML IM ONE (08:59)
[2022-08-17] MEDS ORDERED: DIPRIVAN 200 MG/20 ML IV ONE (10:38)
[2022-08-17] MEDS ORDERED: Lactated Ringers 1,000 ML IV ONE (10:44)
--- NOTE | 2022-08-17 12:06 | XRAY ---
Indication: Right L4-S1 RFA. Intraoperative fluoroscopy provided for 21 seconds. 3 digital spot image submitted for interpretation demonstrates posterior needle tips projecting over the expected right L4-S1 nerve roots. Correlate with intraoperative findings/report.
--- NOTE | 2022-08-17 12:42 | XRAY ---
21 seconds of fluoroscopy was used in surgery for a right L4-S1 RFA.
== END 2022-08-17 11:05 | disposition home or self-care (01) ==
LOC: SDC-PAIN 08:58
PROVIDERS: ATTEND Psychiatry & Neurology Pain Medicine
DX: M47.816 Spondylosis without myelopathy or radiculopathy, lumbar region (principal); E11.9 Type 2 diabetes mellitus without complications; I10 Essential (primary) hypertension; Z79.899 Other long term (current) drug therapy
CPT/HCPCS: 64635; 64636; 72100; 77002; 82947; J1030; J1642; J2001; J2704

== ENCOUNTER 2022-08-24 08:33 | Day surgery (SDC) | payer MEDICARE ==
[2022-08-24] MEDS ORDERED: Depo-Medrol 40 MG/ML IM ONE (08:34)
[2022-08-24] MEDS ORDERED: LIDOCAINE HCL 1% 50 MG/5 ML VL PF IJ ONE (08:34)
[2022-08-24] MEDS ORDERED: BUPIVACAINE 0.5% VIAL IJ ONE (08:34)
[2022-08-24] MEDS ORDERED: DIPRIVAN 200 MG/20 ML IV ONE (09:34)
--- NOTE | 2022-08-24 12:00 | XRAY ---
Indication: Left L4-S1 RFA. Intraoperative fluoroscopy provided for 24 seconds. 5 digital spot images submitted for interpretation demonstrates posterior needle tips projecting over the expected left L4-S1 nerve roots. Correlate with intraoperative findings/report.
--- NOTE | 2022-08-24 12:17 | XRAY ---
24 seconds of fluoroscopy was used in surgery for a left L4-S1 RFA.
[2022-08-24] MEDS ORDERED: Lactated Ringers 1,000 ML IV ONE (14:10)
== END 2022-08-24 09:45 | disposition home or self-care (01) ==
LOC: SDC-PAIN 08:33
PROVIDERS: ATTEND Psychiatry & Neurology Pain Medicine
DX: M47.816 Spondylosis without myelopathy or radiculopathy, lumbar region (principal); E11.9 Type 2 diabetes mellitus without complications; Z79.899 Other long term (current) drug therapy
CPT/HCPCS: 64635; 64636; 72100; 77002; 82947; J1030; J1642; J2001; J2704

== ENCOUNTER 2022-11-02 09:36 | Day surgery (SDC) | payer MEDICARE ==
[2022-11-02] MEDS ORDERED: Depo-Medrol 40 MG/ML IJ ONE (09:37)
[2022-11-02] MEDS ORDERED: Sodium Chloride 0.9(Preservative Free) 10 ML IJ ONE (09:37)
[2022-11-02] MEDS ORDERED: LIDOCAINE HCL 1% 50 MG/5 ML VL PF IJ ONE (09:37)
[2022-11-02] MEDS ORDERED: DIPRIVAN 200 MG/20 ML IV ONE (11:39)
--- NOTE | 2022-11-02 12:03 | XRAY ---
Indication: Lumbar TOMEKA. Intraoperative fluoroscopy provided for 30 seconds. 4 digital spot image submitted for interpretation demonstrates needle tip projecting posterior to mid lumbar segment, possibly L3. Small amount of contrast injected for needle tip placement. Correlate with intraoperative findings/report.
--- NOTE | 2022-11-02 12:08 | XRAY ---
30 seconds of fluoroscopy was used in surgery for a lumbar TOMEKA.
[2022-11-02] MEDS ORDERED: Lactated Ringers 1,000 ML IV ONE (12:46)
== END 2022-11-02 12:05 | disposition home or self-care (01) ==
LOC: SDC-PAIN 09:36
PROVIDERS: ATTEND Psychiatry & Neurology Pain Medicine
DX: M54.16 Radiculopathy, lumbar region (principal); E11.9 Type 2 diabetes mellitus without complications; Z79.899 Other long term (current) drug therapy
CPT/HCPCS: 62323; 72100; 77003; 82947; J1030; J1642; J2001; J2704; Q9966

== ENCOUNTER 2023-03-22 10:40 | Day surgery (SDC) | payer MEDICARE ==
[2023-03-22] MEDS ORDERED: Depo-Medrol 40 MG/ML IM ONE (10:41)
[2023-03-22] MEDS ORDERED: Sodium Chloride 0.9(Preservative Free) 10 ML IJ ONE (10:41)
[2023-03-22] MEDS ORDERED: XYLOCAINE-MPF 1% 5ML SDV IJ ONE (10:41)
[2023-03-22] MEDS ORDERED: DIPRIVAN 200 MG/20 ML IV ONE (13:39)
--- NOTE | 2023-03-22 14:35 | XRAY ---
Indication: Lumbar TOMEKA. Intraoperative fluoroscopy provided for 16 seconds. 3 digital spot images submitted for interpretation demonstrates posterior needle tip projecting posterior to lumbosacral junction. Small amount of contrast injected for needle tip placement. Correlate with intraoperative findings/report.
--- NOTE | 2023-03-22 15:07 | XRAY ---
16 seconds of fluoroscopy was used in surgery for a lumbar TOMEKA.
[2023-03-22] MEDS ORDERED: Lactated Ringers 1,000 ML IV ONE (15:34)
== END 2023-03-22 14:08 | disposition home or self-care (01) ==
LOC: SDC-PAIN 10:40
PROVIDERS: ATTEND Psychiatry & Neurology Pain Medicine
DX: M54.16 Radiculopathy, lumbar region (principal); E11.9 Type 2 diabetes mellitus without complications; Z79.899 Other long term (current) drug therapy
CPT/HCPCS: 62323; 72100; 77003; 82947; J1030; J1642; J2704

== ENCOUNTER 2023-05-22 14:56 | Inpatient (IN) | payer MEDICARE ==
--- NOTE | 2023-05-22 16:24 | XRAY ---
Indication: Pain following fall 3 days ago. Comparison: None 2 view right hip demonstrates osteopenia, mild lower lumbar degenerative changes, and tiny spurring superior acetabulum/greater trochanter. No other bony, articular, or soft tissue abnormalities.
--- NOTE | 2023-05-22 16:49 | XRAY ---
Indication: Right hip pain following fall 3 days ago. Multiple contiguous axial images obtained through the pelvis with special attention to osseous structures. Sagittal and coronal reformatted images obtained. Comparison: None Osseous structures demineralized consistent with patient's age. Proximal right femur demonstrates nondisplaced healing subcapital hairline fracture. No other fracture, dislocation, or suspicious bony lesions. Tiny degenerative spurring superior acetabulum and greater trochanters bilaterally. Visualized noncontrasted soft tissues demonstrates mildly distended urinary bladder with mild circumferential wall thickening, possible cystitis in the right clinical setting. Small fatty left inguinal hernia. Minimal aortoiliac calcifications. Impression: 1. Nondisplaced healing right subcapital femur fracture. 2. Osteopenia and degenerative spurring. 3. Urinary bladder circumferential wall thickening. Rule out cystitis. 4. Small fatty left inguinal hernia.
--- NOTE | 2023-05-22 16:51 | XRAY ---
Indication: Right hip pain following fall 3 days ago. Multiple contiguous axial images obtained through the right hip with special attention to osseous structures. Sagittal and coronal reformatted images obtained. Comparison: None Osseous structures demineralized consistent with patient's age. Proximal right femur demonstrates nondisplaced healing subcapital hairline fracture. No other fracture, dislocation, or suspicious bony lesions. Tiny degenerative spurring superior acetabulum and greater trochanter. Visualized noncontrasted soft tissues demonstrates mildly distended urinary bladder with mild circumferential wall thickening, possible cystitis in the right clinical setting. Small fatty left inguinal hernia. Minimal aortoiliac calcifications. Impression: 1. Nondisplaced healing right subcapital femur fracture. 2. Osteopenia and degenerative spurring. 3. Urinary bladder circumferential wall thickening. Rule out cystitis. 4. Small fatty left inguinal hernia.
--- NOTE | 2023-05-22 19:15 | ERPHSYRPT ---
- History of Present Illness Time Seen by Provider: 05/22/23 15:10 Historian: patient Exam Limitations: no limitations Patient Subjective Stated Complaint: Right sided hip pain Triage Nursing Assessment: 68 yr old male pt arrives to ED via EMS. Pt presents with complaints of right hip injury. Pt reports that he fell onto his right side when he felt. Pt reports that he did hit his head and did has LOC. Pt is unsure if he takes a blood thinner. Pt is reporting 8/10 pain in his right hip. Pt is also reporting some numbness in his 4th and 5th digits on his right hand. Pt is alert, oriented and not in distress. Physician History: . Patient is a 68-year-old male who presents with a plaint of pain in the right hip. He is unable to bear weight ever since a fall Monday 4 days ago Allergies/Adverse Reactions: Influenza Virus Vaccines Allergy (Severe, Verified 05/22/23 15:21) Iodinated Contrast Media [Iodinated Contrast- Oral and IV Dye] Allergy (Severe, Verified 05/22/23 15:21) Anaphylactic Reaction states " my throat closed up" Home Medications: Amlodipine Besylate [Norvasc] 10 mg PO DAILY 06/26/19 [History] Duloxetine HCl 30 mg [Cymbalta 30 MG Capsule] 60 mg PO DAILY 06/26/19 [History] Finasteride 5 mg [Proscar 5 MG] 5 mg PO DAILY 06/26/19 [History] Immune Globul G/Gly/Iga Avg 46 [Gamunex-C 10 Gram/100 ml Vial] 50 gm IJ WEEKLY 06/26/19 [History] Insulin Degludec [Tresiba Flextouch U-200] 80 unit SQ BREAKFAST 06/26/19 [History] Insulin NPH Human Isophane [Novolin N Flexpen] 30 units SQ TIDWMEALS 06/26/19 [History] carvediloL [Carvedilol] 25 mg PO BID 06/26/19 [History] cloNIDine HCL [Clonidine HCl] 0.2 mg PO BID 06/26/19 [History] Lorazepam 0.5 mg [Ativan 0.5 MG] 0.5 mg PO HS 04/22/20 [History] lisinopriL [Lisinopril] 40 mg PO DAILY 04/22/20 [History] Hx Tetanus, Diphtheria Vaccination/Date Given: No Hx Influenza Vaccination/Date Given: No Hx Pneumococcal Vaccination/Date Given: No Immunizations Up to Date: No Travel Risk - International Travel Have you traveled outside of the country in past 3 weeks: No - Coronavirus Screening Are you exhibiting any of the following symptoms?: No Close contact with a COVID-19 positive Pt in past 14-21 Days: No - Vaccine Status Have you recieved a Covid-19 vaccination: No - Past Medical History Pertinent Past Medical History: Yes Neurological History: Other ENT History: No Pertinent History Cardiac History: Hypertension Respiratory History: No Pertinent History Endocrine Medical History: Diabetes Type II Musculoskeletal History: Arthritis GI Medical History: No Pertinent History History: Other Psycho-Social History: Depression Male Reproductive Disorders: No Pertinent History Other Medical History: Parker Chatman, "Thickened heart wall due to being bitten by Granado bug in [facility]". CIPD (Chronic Inflammatory Demyelinating Polyneuropathy) - Past Surgical History Past Surgical History: Yes Neuro Surgical History: No Pertinent History Cardiac: No Pertinent History Respiratory: No Pertinent History Gastrointestinal: No Pertinent History Genitourinary: No Pertinent History Musculoskeletal: No Pertinent History Male Surgical History: No Pertinent History Other Surgical History: Power Port x8 placed over 17 years and removed , has broken two disc in back with a fall - Social History Smoking Status: Never smoker Exposure to second hand smoke: No Drug Use: marijuana Patient Lives Alone: No () - Nursing Vital Signs Nursing Vital Signs: Initial Vital Signs Temperature 97.2 F 05/22/23 14:57 Pulse Rate 67 05/22/23 14:57 Respiratory Rate 18 05/22/23 14:57 Blood Pressure 144/67 05/22/23 14:57 O2 Sat by Pulse Oximetry 96 05/22/23 14:57 Pain Scale Pain Intensity 8 - Physical Exam SpO2: 96 Ordered Tests: Active Orders 24 hr Category Date Time Status HIP UNI (2V) INCL PEL IF DONE Stat Exams 05/22/23 15:17 Completed LOWER EXTREMITY WO CONTRAST [CT] Stat Exams 05/22/23 15:47 Completed PELVIS WITHOUT CONTRAST [CT] Stat Exams 05/22/23 15:47 Completed Medication Summary Discontinued Medications Generic Name Dose Route Start Last Admin Trade Name Freq PRN Reason Stop Dose Admin Hydromorphone HCl 1 mg 05/22/23 19:13 Hydromorphone 1 Mg/1ml Inj IV 05/22/23 19:14 STAT ONE Ondansetron HCl 4 mg 05/22/23 19:13 Ondansetron Hcl 4 Mg/2 Ml Vial IV 05/22/23 19:14 STAT ONE - Departure Referrals: PERRI MONROY [Primary Care Provider] - Follow up/PCP as directed
[2023-05-22] MEDS ORDERED: Zofran 4 MG/2 ML VIAL ONE (19:33)
[2023-05-22] MEDS ORDERED: Hydromorphone 1 mg/ml Injection ONE (19:33)
[2023-05-22] MEDS: Zofran 4 MG/2 ML VIAL IV ONE (19:36)
[2023-05-22] MEDS: Hydromorphone 1 mg/ml Injection IV ONE (19:39)
[2023-05-22] MEDS ORDERED: Sodium Chloride 0.9% 1000 ML 1,000 ML ONE (19:47)
[2023-05-22] MEDS: Sodium Chloride 0.9% 1000 ML 1,000 ML IV SCH (19:53)
[2023-05-22 20:11] LABS: Absolute Neutrophil Ct (ANC) 1.61 x10^3/uL (1.4-6.9); BASOPHIL % 0.5 % (0.0-0.4); Basophil (Absolute #) 0.02 x10^3/uL (0-0.4); Eosinophil % 6.4 % (0.00-5.0); Eosinophil (Absolute #) 0.24 x10^3/uL (0-0.5); Hematocrit 34.9 % (42-50); Hemoglobin 11.9 g/dL (12.5-18.0); IMMATURE GRAN # 0.01 x10^3u/L (0.00-0.03); IMMATURE GRAN % 0.3 % (0.00-0.4); Lymphocyte (Absolute #) 1.38 x10^3/uL (1.0-4.6); Lymphocytes % 36.9 % (24.0-44.0); Mean Cell Volume 86.6 fL (78-100); Mean Corpuscular Hemoglobin 29.5 pg (26-32); Mean Corpuscular Hgb Concent. 34.1 g/dL (32-36); Mean Platelet Volume 10.2 fL (7.5-11.0); Monocyte (Absolute #) 0.48 x10^3/uL (0.0-1.3); Monocytes % 12.8 % (0.0-12.0); Neutrophil % 43.1 % (36.0-66.0); Platelet Count 163 x10^3/uL (150-450); Red Blood Count 4.03 x10^6/uL (4.1-5.6); Red Cell Distribution Width 14.9 % (11.5-14.0); White Blood Count 3.7 x10^3/uL (4.0-10.5)
[2023-05-22 20:16] LABS: Appearance Clear (Clear); Bacteria Rare /HPF (None Seen); Bilirubin Negative (Negative); Blood Negative (Negative); Epithelial Cells None Seen /HPF (None Seen); Glucose, Urine Negative (Negative); Hyaline Casts NONE SEEN /LPF (0-2); Ketones Negative (Negative); Leukocyte Esterase Moderate (Negative); Nitrite Negative (Negative); Protein,Urine Dip Negative (Negative); RBC 0-2 /HPF (0-5); Specific Gravity 1.015 (1.005-1.030); Urobilinogen 0.2 mg/dL (0.2); WBC 51-100 /HPF (0-5)
[2023-05-22 20:17] LABS: ADD URINE CULTURE? YES (NO)
[2023-05-22 20:37] LABS: ALBUMIN 4.1 g/dL (3.5-5.0); BILIRUBIN,TOTAL 0.7 mg/dL (0.2-1.3); Calcium 9.1 mg/dL (8.4-10.2); Creatinine 1 0.88 mg/dL (0.66-1.25); EST GLOMERULAR FILTRATION RATE 93.1 ML/MIN; Potassium 4.3 mmol/L (3.5-5.1); Total Protein 8.9 g/dL (6.3-8.2)
[2023-05-22 21:08] LABS: INR 1.01 (0.8-3.0)
[2023-05-22] MEDS: ROCEPHIN 1 GM / 100 ML NaCl 1 GM/100 ML IVPB IV SCH (21:43)
[2023-05-22] MEDS ORDERED: TYLENOL 325 MG PO PRN (22:01)
[2023-05-22] MEDS ORDERED: Docusate Sodium 100 MG PO PRN (22:10)
--- NOTE | 2023-05-22 22:25 | PCM.HP ---
History of Present Illness - Chief Complaint Chief Complaint: FRACTURE RIGHT HIP Date: 05/22/23 History of Present Illness: is a 68 year old male with a history CIDP and DM who presents with persistent right hip pain after a fall 4 days prior to presentation. The pain his constant and has 8/10 intensity. He had fallen on to his right side at the time of the injury. In the ED, the workup revealed a nondisplaced right femur fracture. The patient also has reported dysuria and pyuria for approximately 4 days. No fever is reported. In the ED he also reported some numbness in his 4th and 5th digits on his right hand. Orthopedic surgery was called and that service will assess the patient in the morning. No chest pain, cough or orthopnea is reported. Since his fall he has had some mild right leg edema. - Review of Systems Constitutional: No Symptoms Eyes: No Symptoms Ears, Nose, & Throat: No Symptoms Respiratory: No Symptoms Cardiac: Edema Abdominal/Gastrointestinal: No Symptoms Genitourinary Symptoms: Dysuria Musculoskeletal: Arthralgias, Fall, Injury Skin: No Symptoms Neurological: Parasthesia Psychological: No Symptoms Endocrine: No Symptoms Hematologic/Lymphatic: No Symptoms Medications & Allergies Home Medications: Home Medication List Amlodipine Besylate [Norvasc] 10 mg PO DAILY 06/26/19 [History Confirmed 05/22/23] Finasteride 5 mg [Proscar 5 MG] 5 mg PO HS 06/26/19 [History Confirmed 05/22/23] Insulin Degludec [Tresiba Flextouch U-200] 80 unit SQ HS 06/26/19 [History Confirmed 05/22/23] carvediloL [Carvedilol] 25 mg PO BID 06/26/19 [History Confirmed 05/22/23] Acetaminophen [Tylenol] 650 mg PO Q4HPRN PRN #1 tablet 05/28/20 [Rx Confirmed 05/22/23] Citalopram Hydrobromide [Citalopram HBr] 20 mg PO DAILY 05/22/23 [History Confirmed 05/22/23] Gabapentin 300 mg PO BID 05/22/23 [History Confirmed 05/22/23] Hydralazine HCl 25 mg PO TID 05/22/23 [History Confirmed 05/22/23] Oxycodone HCl/Acetaminophen [Oxycodone-Acetaminophn 7.5-325] 7.5 mg PO TID 05/22/23 [History Confirmed 05/22/23] Tamsulosin HCl 0.4 mg [Flomax 0.4 MG] 1 tab PO HS 05/22/23 [History Confirmed 05/22/23] Allergies/Adverse Reactions: Allergies Allergy/AdvReac Type Severity Reaction Status Date / Time Influenza Virus Vaccines Allergy Severe Verified 05/22/23 15:21 Iodinated Contrast Media Allergy Severe Anaphylactic Verified 05/22/23 15:21 [Iodinated Contrast- Oral Reaction and IV Dye] - Past Medical History Past Medical History: Yes Neurological History: Other ENT History: No Pertinent History Cardiac History: Hypertension Respiratory History: No Pertinent History Endocrine Medical History: Diabetes Type II Musculoskelatal History: Arthritis GI Medical History: No Pertinent History History: Other Pyscho-Social History: Depression Male Reproductive Disorders: No Pertinent History Comment: Parker Chatman, "Thickened heart wall due to being bitten by Granado bug in [facility]". CIPD (Chronic Inflammatory Demyelinating Polyneuropathy). HEPATITIS B, DORMANT - Past Surgical History Past Surgical History: Yes Neuro Surgical History: No Pertinent History Cardiac History: No Pertinent History Respiratory Surgery: No Pertinent History GI Surgical History: No Pertinent History Genitourinary Surgical Hx: No Pertinent History Musculskeletal Surgical Hx: No Pertinent History Male Surgical History: No Pertinent History Other Surgical History: Power Port x10 placed over 17 years and removed , has broken two disc in back with a fall - Social History Smoking Status: Never smoker Exposure to second hand smoke: No Alcohol: None Drug Use: none - Physical Exam Vital Signs: Vital Signs - 24 hr Temp Pulse Resp BP BP Pulse Ox 05/22/23 20:25 97.1 F 67 20 184/80 94 L 05/22/23 20:01 67 20 135/67 95 05/22/23 19:32 96 05/22/23 19:30 62 18 183/78 97 05/22/23 19:00 64 20 166/83 94 L 05/22/23 17:30 68 19 176/80 96 05/22/23 17:00 173/79 91 L 05/22/23 16:59 93 L 05/22/23 16:50 95 02/12/24 16:40 94 L 05/22/23 16:39 64 18 96 05/22/23 16:00 141/69 05/22/23 15:59 91 L 05/22/23 15:50 94 L 05/22/23 15:40 93 L 05/22/23 15:35 96 05/22/23 15:00 146/65 05/22/23 14:57 97.2 F 67 18 144/67 96 General Appearance: no apparent distress, alert Neurologic Exam: alert, oriented x 3, cooperative, normal mood/affect, nml cerebellar function, sensation nml, No motor deficits Eye Exam: PERRL/EOMI, eyes nml inspection Ears, Nose, Throat Exam: normal ENT inspection, pharynx normal, moist mucous membranes Neck Exam: normal inspection, non-tender, supple, full range of motion Respiratory Exam: normal breath sounds, lungs clear, No respiratory distress Cardiovascular Exam: regular rate/rhythm, normal heart sounds Gastrointestinal/Abdomen Exam: soft, normal bowel sounds, No tenderness, No mass Back Exam: normal range of motion Extremity Exam: normal inspection, pedal edema (on right foot. nonpitting.), swelling Skin Exam: normal color, warm Results - Labs Lab/Micro Results: Lab Results-Last 24 Hours 05/22/23 05/22/23 05/22/23 Range/Units 19:34 19:34 19:34 WBC 3.7 L (4.0-10.5) x10^3/uL RBC 4.03 L (4.1-5.6) x10^6/uL Hgb 11.9 L (12.5-18.0) g/dL Hct 34.9 L (42-50) % MCV 86.6 (78-100) fL MCH 29.5 (26-32) pg MCHC 34.1 (32-36) g/dL RDW 14.9 H (11.5-14.0) % Plt Count 163 (150-450) x10^3/uL MPV 10.2 (7.5-11.0) fL Gran % 43.1 (36.0-66.0) % Immature Gran % (Auto) 0.3 (0.00-0.4) % Nucleat RBC Rel Count 0.0 (0.00-0.1) % Eos # (Auto) 0.24 (0-0.5) x10^3/uL Immature Gran # (Auto) 0.01 (0.00-0.03) x10^3u/L Absolute Lymphs (auto) 1.38 (1.0-4.6) x10^3/uL Absolute Monos (auto) 0.48 (0.0-1.3) x10^3/uL Absolute Nucleated RBC 0.00 (0.00-0.01) x10^3u/L Lymphocytes % 36.9 (24.0-44.0) % Monocytes % 12.8 H (0.0-12.0) % Eosinophils % 6.4 H (0.00-5.0) % Basophils % 0.5 (0.0-0.4) % Absolute Granulocytes 1.61 (1.4-6.9) x10^3/uL Basophils # 0.02 (0-0.4) x10^3/uL PT 11.0 (9.4-12.5) SECONDS INR 1.01 (0.8-3.0) APTT 88.0 H (25.1-36.5) SECONDS Sodium 132 L (137-145) mmol/L Potassium 4.3 (3.5-5.1) mmol/L Chloride 98 (98-107) mmol/L Carbon Dioxide 28 (22-30) mmol/L Anion Gap 10.0 (5-15) MEQ/L BUN 14 (9-20) mg/dL Creatinine 0.88 (0.66-1.25) mg/dL Estimated GFR 93.1 ML/MIN Glucose 197 H (74-106) mg/dL POC Glucometer (74 to 106) mg/dL Lactic Acid (0.4-2.0) Calcium 9.1 (8.4-10.2) mg/dL Total Bilirubin 0.70 (0.2-1.3) mg/dL AST 23 (17-59) U/L ALT 22 (0-50) U/L Alkaline Phosphatase 73 (38-126) U/L Serum Total Protein 8.9 H (6.3-8.2) g/dL Albumin 4.1 (3.5-5.0) g/dL Urine Color (Yellow) Urine Appearance (Clear) Urine pH (4.6-8.0) Ur Specific [place] (1.005-1.030) Urine Protein (Negative) Urine Glucose (UA) (Negative) mg/dL Urine Ketones (Negative) Urine Blood (Negative) Urine Nitrite (Negative) Urine Bilirubin (Negative) Urine Urobilinogen (0.2) mg/dL Ur Leukocyte Esterase (Negative) U Hyaline Cast (Auto) (0-2) /LPF Urine Microscopic RBC (0-5) /HPF Urine Microscopic WBC (0-5) /HPF Ur Epithelial Cells (None Seen) /HPF Urine Bacteria (None Seen) /HPF Urine Culture Reflexed (NO) 05/22/23 05/22/23 05/22/23 Range/Units 19:40 19:58 21:21 WBC (4.0-10.5) x10^3/uL RBC (4.1-5.6) x10^6/uL Hgb (12.5-18.0) g/dL Hct (42-50) % MCV (78-100) fL MCH (26-32) pg MCHC (32-36) g/dL RDW (11.5-14.0) % Plt Count (150-450) x10^3/uL MPV (7.5-11.0) fL Gran % (36.0-66.0) % Immature Gran % (Auto) (0.00-0.4) % Nucleat RBC Rel Count (0.00-0.1) % Eos # (Auto) (0-0.5) x10^3/uL Immature Gran # (Auto) (0.00-0.03) x10^3u/L Absolute Lymphs (auto) (1.0-4.6) x10^3/uL Absolute Monos (auto) (0.0-1.3) x10^3/uL Absolute Nucleated RBC (0.00-0.01) x10^3u/L Lymphocytes % (24.0-44.0) % Monocytes % (0.0-12.0) % Eosinophils % (0.00-5.0) % Basophils % (0.0-0.4) % Absolute Granulocytes (1.4-6.9) x10^3/uL Basophils # (0-0.4) x10^3/uL PT (9.4-12.5) SECONDS INR (0.8-3.0) APTT (25.1-36.5) SECONDS Sodium (137-145) mmol/L Potassium (3.5-5.1) mmol/L Chloride (98-107) mmol/L Carbon Dioxide (22-30) mmol/L Anion Gap (5-15) MEQ/L BUN (9-20) mg/dL Creatinine (0.66-1.25) mg/dL Estimated GFR ML/MIN Glucose (74-106) mg/dL POC Glucometer 219 H (74 to 106) mg/dL Lactic Acid 0.9 (0.4-2.0) Calcium (8.4-10.2) mg/dL Total Bilirubin (0.2-1.3) mg/dL AST (17-59) U/L ALT (0-50) U/L Alkaline Phosphatase (38-126) U/L Serum Total Protein (6.3-8.2) g/dL Albumin (3.5-5.0) g/dL Urine Color Yellow (Yellow) Urine Appearance Clear (Clear) Urine pH 7.0 (4.6-8.0) Ur Specific [place] 1.015 (1.005-1.030) Urine Protein Negative (Negative) Urine Glucose (UA) Negative (Negative) mg/dL Urine Ketones Negative (Negative) Urine Blood Negative (Negative) Urine Nitrite Negative (Negative) Urine Bilirubin Negative (Negative) Urine Urobilinogen 0.2 (0.2) mg/dL Ur Leukocyte Esterase Moderate A (Negative) U Hyaline Cast (Auto) NONE SEEN (0-2) /LPF Urine Microscopic RBC 0-2 (0-5) /HPF Urine Microscopic WBC 51-100 A (0-5) /HPF Ur Epithelial Cells None Seen (None Seen) /HPF Urine Bacteria Rare A (None Seen) /HPF Urine Culture Reflexed YES (NO) Accuchecks Date 05/22/23 - Radiology Impressions Radiology Exams & Impressions: Radiology Procedures Category Date Time Status CHEST 1 VIEW (PORTABLE) Stat Exams 05/22/23 19:34 Taken HIP UNI (2V) INCL PEL IF DONE Stat Exams 05/22/23 15:17 Completed LOWER EXTREMITY WO CONTRAST [CT] Stat Exams 05/22/23 15:47 Completed PELVIS WITHOUT CONTRAST [CT] Stat Exams 05/22/23 15:47 Completed - Other Procedures and Tests Respiratory Therapy 05/22/23 20:01 EKG REPEAT IN AM Assessment/Plan (1) Nondisplaced fracture of right femur Current Visit: Yes Status: Acute Assessment & Plan: Ortho to see in AM. NPO p MN. Bedrest until further recommendations. May need rehab placement. PT/OT. CM consult. Code(s): S72.91XA - UNSP FRACTURE OF RIGHT FEMUR, INIT FOR CLOS FX (2) Right hip pain Current Visit: Yes Status: Acute Assessment & Plan: Analgesia. Code(s): M25.551 - PAIN IN RIGHT HIP (3) Urinary tract infection Current Visit: Yes Status: Acute Assessment & Plan: Follow urine culture. IV antibiotics. Code(s): N39.0 - URINARY TRACT INFECTION, SITE NOT SPECIFIED (4) Hyponatremia Current Visit: Yes Status: Acute Assessment & Plan: Mild. Will receive NS IVF Code(s): E87.1 - HYPO-OSMOLALITY AND HYPONATREMIA Telemedicine Encounter - Telemedicine Encounter Telemedicine Encounter: The entirety of this encounter was performed via Telemedicine"
[2023-05-22] MEDS: Hydromorphone 1 mg/ml Injection IV PRN (23:16)
[2023-05-22] MEDS: HUMALOG SQ PRN (23:17)
[2023-05-23] MEDS: Zofran 4 MG/2 ML VIAL IV PRN (04:46)
[2023-05-23 05:28] LABS: Hematocrit 32.2 % (42-50); Hemoglobin 10.7 g/dL (12.5-18.0); Mean Cell Volume 86.3 fL (78-100); Mean Corpuscular Hemoglobin 28.7 pg (26-32); Mean Corpuscular Hgb Concent. 33.2 g/dL (32-36); Mean Platelet Volume 10.2 fL (7.5-11.0); Platelet Count 163 x10^3/uL (150-450); Red Blood Count 3.73 x10^6/uL (4.1-5.6); Red Cell Distribution Width 15.1 % (11.5-14.0); White Blood Count 3.1 x10^3/uL (4.0-10.5)
[2023-05-23 05:42] LABS: INR 1.01 (0.8-3.0)
[2023-05-23 06:29] LABS: ANION GAP 9.4 MEQ/L (5-15); Calcium 8.7 mg/dL (8.4-10.2); Creatinine 1 0.95 mg/dL (0.66-1.25); EST GLOMERULAR FILTRATION RATE 86.6 ML/MIN; Potassium 4.2 mmol/L (3.5-5.1)
[2023-05-23] MEDS: Sodium Chloride 0.9% 1000 ML 1,000 ML IV SCH (06:33)
--- NOTE | 2023-05-23 08:38 | XRAY ---
Indication: Preop exam. Comparison: February 12, 2020 Portable chest better inflated and remains clear. Heart not enlarged again with incompletely visualized left Port-A-Cath. Bony thorax intact again with osteopenia and mild degenerative changes. Impression: Nonacute chest with chronic features.
--- NOTE | 2023-05-23 08:40 | XRAY ---
Indication: Pain and numbness following fall. Comparison: None 2 view right hand demonstrates osteopenia and mild 1st metacarpal multangular degenerative changes. No other bony, articular, or soft tissue abnormalities.
[2023-05-23] MEDS ORDERED: NON-FORMULARY ITEM (Hydralazine Hcl [Hydralazine Hcl] 50 MG Tablet) PO SCH (10:00)
[2023-05-23] MEDS ORDERED: CITALOPRAM HYDROBROMIDE PO SCH (10:00)
[2023-05-23] MEDS ORDERED: ACETAMINOPHEN PO SCH (10:00)
[2023-05-23] MEDS ORDERED: NON-FORMULARY ITEM (Carvedilol [Carvedilol] 25 MG Tablet) PO SCH (10:00)
[2023-05-23] MEDS ORDERED: NON-FORMULARY ITEM (Amlodipine Besylate [Norvasc] 10 MG Tablet) PO SCH (10:00)
[2023-05-23] MEDS ORDERED: OXYCODONE HCL PO SCH (10:00)
[2023-05-23] MEDS: COREG 12.5 MG PO SCH (11:09)
[2023-05-23] MEDS: Acidophilus TABLET PO SCH (11:12)
[2023-05-23] MEDS: Apresoline 25 MG TABLET PO SCH ×2 (11:13→20:50)
[2023-05-23] MEDS: NEURONTIN PO SCH (11:13)
[2023-05-23] MEDS: ceLEXa 20 MG PO SCH (11:13)
[2023-05-23] MEDS: NORVASC 5 MG PO SCH (11:14)
[2023-05-23] MEDS: PERCOCET TABLET 5/325MG PO SCH (11:14)
[2023-05-23] MEDS: Lactated Ringers 1,000 ML IV SCH (11:34)
[2023-05-23] MEDS ORDERED: Zemuron 100 MG/10 ML ONE (11:47)
[2023-05-23] MEDS ORDERED: DIPRIVAN 200 MG/20 ML IV ONE (11:48)
[2023-05-23] MEDS ORDERED: BRIDION 200MG/2ML IV ONE (11:48)
[2023-05-23] MEDS ORDERED: Zofran 4 MG/2 ML VIAL ONE (11:48)
[2023-05-23] MEDS ORDERED: Xylocaine-Mpf 2% 5 Ml Vial ONE (11:48)
[2023-05-23] MEDS ORDERED: SUBLIMAZE 100 MCG/2 ML ONE ×2 (11:48→14:20)
[2023-05-23] MEDS ORDERED: Decadron 4 MG INJ ONE ×2 (11:48→13:21)
[2023-05-23] MEDS ORDERED: TORAdol 30 mg Injection ONE (11:48)
--- NOTE | 2023-05-23 11:48 | PCM.NOTE ---
Date and Time: 05/23/23 1142 Subjective Assessment: is a 68 year old male with a history CIDP and DM. He presented to the ER on 05/22/23 with persistent right hip pain after a fall 4 days prior to presentation. The pain his constant and has 10/10 intensity. With pain medication pain reduced to 4/10. He reports he had fallen on to his right side, in his bathroom, at the time of the injury. In the ED, the workup revealed a nondisplaced right femur fracture. The patient also has reported dysuria and pyuria for approximately 4 days. No fever is reported. In the ED he also reported some numbness in his 4th and 5th digits on his right hand. Hand XR negative for acute process. Orthopedic surgery evaluated pt this morning and will have surgery today. No chest pain, cough or orthopnea is reported. Since his fall he has had some mild right leg edema. Venous duplex completed today with results pending. Antibiotics started for a UTI with urine culture pending. Pt denies any further concerns at this time. - Review of Systems Constitutional: No Fever, No Chills Eyes: No Symptoms Ears, Nose, & Throat: No Symptoms Respiratory: No Cough, No Short Of Breath Cardiac: Edema (RLE), No Chest Pain, No Syncope Abdominal/Gastrointestinal: No Abdominal Pain, No Nausea, No Vomiting, No Diarrhea Genitourinary Symptoms: No Dysuria Musculoskeletal: Fall (right hip), Injury, Joint Pain, No Back Pain, No Neck Pain Skin: No Rash Neurological: No Dizziness, No Focal Weakness, No Sensory Changes Psychological: No Symptoms Endocrine: No Symptoms Hematologic/Lymphatic: No Symptoms Immunological/Allergic: No Symptoms Objective Exam General Appearance: no apparent distress, alert, obese Neurologic Exam: alert, oriented x 3, cooperative, normal mood/affect, nml cerebellar function, sensation nml, No motor deficits Skin Exam: normal color, warm, dry Eye Exam: PERRL, EOMI, eyes nml inspection Ears, Nose, Throat Exam: normal ENT inspection, pharynx normal, moist mucous membranes Neck Exam: normal inspection, non-tender, supple, full range of motion Respiratory Exam: normal breath sounds, lungs clear, No respiratory distress Cardiovascular Exam: regular rate/rhythm, normal heart sounds, normal peripheral pulses, edema (RLE +2 pitting edema) Gastrointestinal/Abdomen Exam: soft, No tenderness, No mass Extremity Exam: normal inspection, normal range of motion Back Exam: normal inspection, normal range of motion, No CVA tenderness, No vertebral tenderness Male Genitalia Exam: deferred Rectal Exam: deferred OBJECTIVE DATA Vital Signs: Vital Signs - 24 hr Temp Pulse Resp BP BP Pulse Ox 05/23/23 07:54 97.5 F 62 19 152/67 95 05/23/23 04:00 97.7 F 65 16 133/63 90 L 05/22/23 23:20 97.1 F 64 16 154/72 97 05/22/23 20:25 97.1 F 67 20 184/80 94 L 05/22/23 20:01 67 20 135/67 95 05/22/23 19:32 96 05/22/23 19:30 62 18 183/78 97 05/22/23 19:00 64 20 166/83 94 L 05/22/23 17:30 68 19 176/80 96 05/22/23 17:00 173/79 91 L 05/22/23 16:59 93 L 05/22/23 16:50 95 05/22/23 16:40 94 L 05/22/23 16:39 64 18 96 05/22/23 16:00 141/69 05/22/23 15:59 91 L 05/22/23 15:50 94 L 05/22/23 15:40 93 L 05/22/23 15:35 96 05/22/23 15:00 146/65 05/22/23 14:57 97.2 F 67 18 144/67 96 Pain Assessment - Last Documented Pain Intensity 7 Pain Scale Used 0-10 Pain Scale Intake and Output: Intake & Output 05/20/23 05/21/23 05/22/23 05/23/23 11:59 11:59 11:59 11:59 Intake Total 600 Output Total 1380 Balance -780 Weight 111 kg Lab Results: Lab Results-Last 24 Hours 05/22/23 05/22/23 05/22/23 Range/Units 19:34 19:34 19:34 WBC 3.7 L (4.0-10.5) x10^3/uL RBC 4.03 L (4.1-5.6) x10^6/uL Hgb 11.9 L (12.5-18.0) g/dL Hct 34.9 L (42-50) % MCV 86.6 (78-100) fL MCH 29.5 (26-32) pg MCHC 34.1 (32-36) g/dL RDW 14.9 H (11.5-14.0) % Plt Count 163 (150-450) x10^3/uL MPV 10.2 (7.5-11.0) fL Gran % 43.1 (36.0-66.0) % Immature Gran % (Auto) 0.3 (0.00-0.4) % Nucleat RBC Rel Count 0.0 (0.00-0.1) % Eos # (Auto) 0.24 (0-0.5) x10^3/uL Immature Gran # (Auto) 0.01 (0.00-0.03) x10^3u/L Absolute Lymphs (auto) 1.38 (1.0-4.6) x10^3/uL Absolute Monos (auto) 0.48 (0.0-1.3) x10^3/uL Absolute Nucleated RBC 0.00 (0.00-0.01) x10^3u/L Lymphocytes % 36.9 (24.0-44.0) % Monocytes % 12.8 H (0.0-12.0) % Eosinophils % 6.4 H (0.00-5.0) % Basophils % 0.5 (0.0-0.4) % Absolute Granulocytes 1.61 (1.4-6.9) x10^3/uL Basophils # 0.02 (0-0.4) x10^3/uL PT 11.0 (9.4-12.5) SECONDS INR 1.01 (0.8-3.0) APTT 88.0 H (25.1-36.5) SECONDS Sodium 132 L (137-145) mmol/L Potassium 4.3 (3.5-5.1) mmol/L Chloride 98 (98-107) mmol/L Carbon Dioxide 28 (22-30) mmol/L Anion Gap 10.0 (5-15) MEQ/L BUN 14 (9-20) mg/dL Creatinine 0.88 (0.66-1.25) mg/dL Estimated GFR 93.1 ML/MIN Glucose 197 H (74-106) mg/dL POC Glucometer (74 to 106) mg/dL Lactic Acid (0.4-2.0) Calcium 9.1 (8.4-10.2) mg/dL Total Bilirubin 0.70 (0.2-1.3) mg/dL AST 23 (17-59) U/L ALT 22 (0-50) U/L Alkaline Phosphatase 73 (38-126) U/L Serum Total Protein 8.9 H (6.3-8.2) g/dL Albumin 4.1 (3.5-5.0) g/dL Urine Color (Yellow) Urine Appearance (Clear) Urine pH (4.6-8.0) Ur Specific [place] (1.005-1.030) Urine Protein (Negative) Urine Glucose (UA) (Negative) mg/dL Urine Ketones (Negative) Urine Blood (Negative) Urine Nitrite (Negative) Urine Bilirubin (Negative) Urine Urobilinogen (0.2) mg/dL Ur Leukocyte Esterase (Negative) U Hyaline Cast (Auto) (0-2) /LPF Urine Microscopic RBC (0-5) /HPF Urine Microscopic WBC (0-5) /HPF Ur Epithelial Cells (None Seen) /HPF Urine Bacteria (None Seen) /HPF Urine Culture Reflexed (NO) 05/22/23 05/22/23 05/22/23 Range/Units 19:40 19:58 21:21 WBC (4.0-10.5) x10^3/uL RBC (4.1-5.6) x10^6/uL Hgb (12.5-18.0) g/dL Hct (42-50) % MCV (78-100) fL MCH (26-32) pg MCHC (32-36) g/dL RDW (11.5-14.0) % Plt Count (150-450) x10^3/uL MPV (7.5-11.0) fL Gran % (36.0-66.0) % Immature Gran % (Auto) (0.00-0.4) % Nucleat RBC Rel Count (0.00-0.1) % Eos # (Auto) (0-0.5) x10^3/uL Immature Gran # (Auto) (0.00-0.03) x10^3u/L Absolute Lymphs (auto) (1.0-4.6) x10^3/uL Absolute Monos (auto) (0.0-1.3) x10^3/uL Absolute Nucleated RBC (0.00-0.01) x10^3u/L Lymphocytes % (24.0-44.0) % Monocytes % (0.0-12.0) % Eosinophils % (0.00-5.0) % Basophils % (0.0-0.4) % Absolute Granulocytes (1.4-6.9) x10^3/uL Basophils # (0-0.4) x10^3/uL PT (9.4-12.5) SECONDS INR (0.8-3.0) APTT (25.1-36.5) SECONDS Sodium (137-145) mmol/L Potassium (3.5-5.1) mmol/L Chloride (98-107) mmol/L Carbon Dioxide (22-30) mmol/L Anion Gap (5-15) MEQ/L BUN (9-20) mg/dL Creatinine (0.66-1.25) mg/dL Estimated GFR ML/MIN Glucose (74-106) mg/dL POC Glucometer 219 H (74 to 106) mg/dL Lactic Acid 0.9 (0.4-2.0) Calcium (8.4-10.2) mg/dL Total Bilirubin (0.2-1.3) mg/dL AST (17-59) U/L ALT (0-50) U/L Alkaline Phosphatase (38-126) U/L Serum Total Protein (6.3-8.2) g/dL Albumin (3.5-5.0) g/dL Urine Color Yellow (Yellow) Urine Appearance Clear (Clear) Urine pH 7.0 (4.6-8.0) Ur Specific [place] 1.015 (1.005-1.030) Urine Protein Negative (Negative) Urine Glucose (UA) Negative (Negative) mg/dL Urine Ketones Negative (Negative) Urine Blood Negative (Negative) Urine Nitrite Negative (Negative) Urine Bilirubin Negative (Negative) Urine Urobilinogen 0.2 (0.2) mg/dL Ur Leukocyte Esterase Moderate A (Negative) U Hyaline Cast (Auto) NONE SEEN (0-2) /LPF Urine Microscopic RBC 0-2 (0-5) /HPF Urine Microscopic WBC 51-100 A (0-5) /HPF Ur Epithelial Cells None Seen (None Seen) /HPF Urine Bacteria Rare A (None Seen) /HPF Urine Culture Reflexed YES (NO) 05/23/23 05/23/23 05/23/23 Range/Units 04:00 04:00 05:20 WBC 3.1 L (4.0-10.5) x10^3/uL RBC 3.73 L (4.1-5.6) x10^6/uL Hgb 10.7 L (12.5-18.0) g/dL Hct 32.2 L (42-50) % MCV 86.3 (78-100) fL MCH 28.7 (26-32) pg MCHC 33.2 (32-36) g/dL RDW 15.1 H (11.5-14.0) % Plt Count 163 (150-450) x10^3/uL MPV 10.2 (7.5-11.0) fL Gran % (36.0-66.0) % Immature Gran % (Auto) (0.00-0.4) % Nucleat RBC Rel Count (0.00-0.1) % Eos # (Auto) (0-0.5) x10^3/uL Immature Gran # (Auto) (0.00-0.03) x10^3u/L Absolute Lymphs (auto) (1.0-4.6) x10^3/uL Absolute Monos (auto) (0.0-1.3) x10^3/uL Absolute Nucleated RBC (0.00-0.01) x10^3u/L Lymphocytes % (24.0-44.0) % Monocytes % (0.0-12.0) % Eosinophils % (0.00-5.0) % Basophils % (0.0-0.4) % Absolute Granulocytes (1.4-6.9) x10^3/uL Basophils # (0-0.4) x10^3/uL PT 11.0 (9.4-12.5) SECONDS INR 1.01 (0.8-3.0) APTT (25.1-36.5) SECONDS Sodium 135 L (137-145) mmol/L Potassium 4.2 (3.5-5.1) mmol/L Chloride 101 (98-107) mmol/L Carbon Dioxide 29 (22-30) mmol/L Anion Gap 9.4 (5-15) MEQ/L BUN 13 (9-20) mg/dL Creatinine 0.95 (0.66-1.25) mg/dL Estimated GFR 86.6 ML/MIN Glucose 157 H (74-106) mg/dL POC Glucometer (74 to 106) mg/dL Lactic Acid (0.4-2.0) Calcium 8.7 (8.4-10.2) mg/dL Total Bilirubin (0.2-1.3) mg/dL AST (17-59) U/L ALT (0-50) U/L Alkaline Phosphatase (38-126) U/L Serum Total Protein (6.3-8.2) g/dL Albumin (3.5-5.0) g/dL Urine Color (Yellow) Urine Appearance (Clear) Urine pH (4.6-8.0) Ur Specific [place] (1.005-1.030) Urine Protein (Negative) Urine Glucose (UA) (Negative) mg/dL Urine Ketones (Negative) Urine Blood (Negative) Urine Nitrite (Negative) Urine Bilirubin (Negative) Urine Urobilinogen (0.2) mg/dL Ur Leukocyte Esterase (Negative) U Hyaline Cast (Auto) (0-2) /LPF Urine Microscopic RBC (0-5) /HPF Urine Microscopic WBC (0-5) /HPF Ur Epithelial Cells (None Seen) /HPF Urine Bacteria (None Seen) /HPF Urine Culture Reflexed (NO) 05/23/23 05/23/23 Range/Units 07:37 11:24 WBC (4.0-10.5) x10^3/uL RBC (4.1-5.6) x10^6/uL Hgb (12.5-18.0) g/dL Hct (42-50) % MCV (78-100) fL MCH (26-32) pg MCHC (32-36) g/dL RDW (11.5-14.0) % Plt Count (150-450) x10^3/uL MPV (7.5-11.0) fL Gran % (36.0-66.0) % Immature Gran % (Auto) (0.00-0.4) % Nucleat RBC Rel Count (0.00-0.1) % Eos # (Auto) (0-0.5) x10^3/uL Immature Gran # (Auto) (0.00-0.03) x10^3u/L Absolute Lymphs (auto) (1.0-4.6) x10^3/uL Absolute Monos (auto) (0.0-1.3) x10^3/uL Absolute Nucleated RBC (0.00-0.01) x10^3u/L Lymphocytes % (24.0-44.0) % Monocytes % (0.0-12.0) % Eosinophils % (0.00-5.0) % Basophils % (0.0-0.4) % Absolute Granulocytes (1.4-6.9) x10^3/uL Basophils # (0-0.4) x10^3/uL PT (9.4-12.5) SECONDS INR (0.8-3.0) APTT (25.1-36.5) SECONDS Sodium (137-145) mmol/L Potassium (3.5-5.1) mmol/L Chloride (98-107) mmol/L Carbon Dioxide (22-30) mmol/L Anion Gap (5-15) MEQ/L BUN (9-20) mg/dL Creatinine (0.66-1.25) mg/dL Estimated GFR ML/MIN Glucose (74-106) mg/dL POC Glucometer 150 H 148 H (74 to 106) mg/dL Lactic Acid (0.4-2.0) Calcium (8.4-10.2) mg/dL Total Bilirubin (0.2-1.3) mg/dL AST (17-59) U/L ALT (0-50) U/L Alkaline Phosphatase (38-126) U/L Serum Total Protein (6.3-8.2) g/dL Albumin (3.5-5.0) g/dL Urine Color (Yellow) Urine Appearance (Clear) Urine pH (4.6-8.0) Ur Specific [place] (1.005-1.030) Urine Protein (Negative) Urine Glucose (UA) (Negative) mg/dL Urine Ketones (Negative) Urine Blood (Negative) Urine Nitrite (Negative) Urine Bilirubin (Negative) Urine Urobilinogen (0.2) mg/dL Ur Leukocyte Esterase (Negative) U Hyaline Cast (Auto) (0-2) /LPF Urine Microscopic RBC (0-5) /HPF Urine Microscopic WBC (0-5) /HPF Ur Epithelial Cells (None Seen) /HPF Urine Bacteria (None Seen) /HPF Urine Culture Reflexed (NO) Radiology Exams: Radiology Procedures Category Date Time Status CHEST 1 VIEW (PORTABLE) Stat Exams 05/22/23 19:34 Completed HAND (2 VIEW) Routine Exams 05/22/23 22:29 Completed HIP UNI (2V) INCL PEL IF DONE Stat Exams 05/22/23 15:17 Completed LOWER EXTREMITY WO CONTRAST [CT] Stat Exams 05/22/23 15:47 Completed PELVIS WITHOUT CONTRAST [CT] Stat Exams 05/22/23 15:47 Completed VENOUS UNILAT/LIMITED EXTREMIT [US] Routine Exams 05/23/23 22:30 Ordered Assessment/Plan (1) Nondisplaced fracture of right femur Current Visit: Yes Status: Acute Assessment & Plan: - Ortho eval today- going to surgery - Will need rehab at d/c per ortho - case management to set up d/c plan - PT/OT - Protonix - pain control Code(s): S72.91XA - UNSP FRACTURE OF RIGHT FEMUR, INIT FOR CLOS FX (2) Right hip pain Current Visit: Yes Status: Acute Assessment & Plan: - narcotic pain control Code(s): M25.551 - PAIN IN RIGHT HIP (3) Hyponatremia Current Visit: Yes Status: Acute Assessment & Plan: - Na+ 135 mild - IVF Code(s): E87.1 - HYPO-OSMOLALITY AND HYPONATREMIA (4) Urinary tract infection Current Visit: Yes Status: Acute Assessment & Plan: - UC pending - rocephin IV Code(s): N39.0 - URINARY TRACT INFECTION, SITE NOT SPECIFIED (5) Edema of right lower extremity Current Visit: Yes Status: Acute Assessment & Plan: - ? 2/2 right hip fx - venous duplex 05/23/23- pending Code(s): R60.0 - LOCALIZED EDEMA (6) Type II diabetes mellitus Current Visit: Yes Status: Chronic Assessment & Plan: - accucheck ac/hs - humalog s/s - Lantus 80 units HS - A1c 01/25- 8.53- uncontrolled - A1c - pending (7) HTN (hypertension) Current Visit: Yes Status: Chronic Assessment & Plan: - controlled - continue home meds Code(s): I10 - ESSENTIAL (PRIMARY) HYPERTENSION (8) Obesity (BMI 30.0-34.9) Current Visit: Yes Status: Chronic Assessment & Plan: - advised diet and exercise control Code(s): E66.9 - OBESITY, UNSPECIFIED (9) Chronic inflammatory demyelinating polyneuropathy Current Visit: Yes Status: Chronic Assessment & Plan: - receives Op infusions for this - adds to complexity Code(s): G61.81 - CHRONIC INFLAMMATORY DEMYELINATING POLYNEURITIS (10) Depression Current Visit: Yes Status: Chronic Assessment & Plan: - stable - continue celexa VTE: SCD PPI: Protonix Next of Kin: Karen Garcia [phone] D/c plan 2-3 days Code status: Full Code(s): F32.A - DEPRESSION, UNSPECIFIED
[2023-05-23] MEDS: CEFAZOLIN 2 GM-D5W BAG** 2 GM/50 ML ML IV SCH ×2 (12:06→20:48)
--- NOTE | 2023-05-23 12:09 | XRAY ---
Indication: Pain and swelling. Two-dimensional sonogram and color Doppler imaging major venous vessels right leg performed. Comparison: None No thrombus seen in examined deep vessels of right leg including greater saphenous vein. Veins demonstrate normal compressibility. Venous waveforms are normal with and without augmentation. Impression: Right leg negative for DVT.
[2023-05-23] MEDS ORDERED: Ephedrine Sulfate 50 MG/ML ONE (12:53)
--- NOTE | 2023-05-23 13:06 | CONS ---
CONSULT DATE: 05/23/2023 HISTORY: The patient is seen, examined and his chart was reviewed. Rg Dia is a 68-year-old male who was at his house on Monday of last week lost his balance due to his chronic inflammatory demyelinating polyneuropathy (CIDP) and fell directly onto his right hip sustaining an injury. He presented to the emergency room last night with continued and worsening right hip pain and inability to place weight on the right lower extremity. He was seen, evaluated and noted to have an impacted subcapital fracture of the right hip. The patient was admitted to the hospital last night by the Hospitalist and orthopedic consultation was requested. The patient was seen and examined. His chart was reviewed. The patient complains of pain in the right hip and inability to bear weight. He denies any progressive numbness or weakening other than consistent with his CIDP. There is no deformity noted. No shortening or external rotation of the right lower extremity. PHYSICAL EXAMINATION: Demonstrates his MOLD STACKER is intact to the right lower extremity. There is tenderness to palpation about the right hip. There is only minimal tenderness with rotation. There is pain with any movement of the hip in regard to flexion, extension, abduction or adduction. There is no shortening or external rotation. Dorsalis pedis and posterior tibial pulses are +2. LAB DATA AND TESTS: X-rays of the hip show a minimally impacted subcapital fracture of the right hip and this is confirmed by CT which was performed by the emergency room doctor. IMPRESSION: Impacted subcapital fracture of right hip. PLAN: The majority of the visit was spent discussing with the patient options for care and given the fact that he has CIDP and receives white blood cell transfusions weekly due to the fact that he is not making white cells, his infection rate is high. I think a bipolar hip replacement arthroplasty risk outweighs the benefit. The patient was given the option for cannulated hip pinning versus conservative management with no surgery. The patient would like to proceed with a cannulated hip pinning of the right hip. An informed consent was given and signed. The patient understands the adherent risks, benefits, complications and alternatives as well as no guarantees to outcome. Specific risk of bleeding, blood clots, infection and wound failure were discussed with the patient. Also a discussion was undertaken with the patient that there is a possibility of avascular necrosis of the hip. The patient understands this and is agreeable to our proposed course of treatment. He will be taken to the operative suite today for cannulated right hip pinning.
[2023-05-23] MEDS ORDERED: Naropin 0.5% 30 ML VIAL ONE (13:21)
[2023-05-23] MEDS ORDERED: DEXMEDETOMIDINE 80 MCG/20ML-NS IV ONE (13:21)
--- NOTE | 2023-05-23 14:45 | OP ---
SURGERY DATE/TIME: 05/23/2023 1237 PREOPERATIVE DIAGNOSIS: Impacted subcapital fracture of right hip. POSTOPERATIVE DIAGNOSIS: Impacted subcapital fracture of right hip. PROCEDURE: Cannulated right hip pinning. SURGEON: Manuelito Griffin II, D.O. ANESTHESIA: General. DESCRIPTION OF PROCEDURE: The patient is identified and informed consent was obtained. The patient was taken to the operating suite with a general anesthetic administered. The patient was then appropriately placed on the fracture table with the bony prominences padded. The groin was placed against the padded post. The right lower extremity was then prepped and draped in the usual sterile fashion. A standard time out was taken. A small incision was carried out over the right hip after identifying level with a guide pin with the C-arm image intensifier. Anesthesia was then accomplished. The skin and subcutaneous tissue was incised. The guide pin was then placed against the lateral cortex of the femur and a small incision and a small incision was carried out in the tensor fascia owen. The pin was then inserted and placed in the superior-anterior region of the head and neck. The guide was then applied and a second pin was then placed superior-posterior and a third parallel pin was then placed inferior. All three were visualized in both the AP and lateral images on the C-arm imaging intensifier and noted to be in good position. At this point, the pins were measured and it was determined that three - 90 mm 8.0 cannulated screws would be necessary. The screws were then drilled and fully inserted. Guide pins were removed and the construct was then visualized under the C-arm intensifier in both the AP and lateral images. Excellent location of the screws was noted. At this point the wound was irrigated. The tensor fascia owen repaired with 0 Vicryl. The subcutaneous tissue with 2-0 Vicryl and bridgett for the skin. Aquacel dressing was applied. The patient was then transferred to the cart and taken to the recovery room in satisfactory condition having tolerating the procedure well.
[2023-05-23] MEDS ORDERED: Hydromorphone 1 mg/ml Injection ONE (14:56)
[2023-05-23] MEDS: PROTONIX 40 MG IV IV SCH (16:10)
--- NOTE | 2023-05-23 16:25 | XRAY ---
Indication: Right hip surgery for fracture. Intraoperative fluoroscopy provided for 1.27 minute. 14 digital spot images submitted for interpretation ultimately demonstrates 3 orthopedic screws fixating subcapital fracture. Correlate with intraoperative findings/report.
[2023-05-23] MEDS: Apresoline 25 MG TABLET PO ONE (16:41)
[2023-05-23] MEDS: Lantus Insulin SQ SCH (20:48)
[2023-05-23] MEDS: Flomax 0.4 MG PO SCH (20:49)
[2023-05-23] MEDS: Ecotrin 325 MG PO SCH (20:49)
[2023-05-23] MEDS: Proscar 5 MG PO SCH (21:05)
[2023-05-23] MEDS: ROCEPHIN 1 GM / 100 ML NaCl 1 GM/100 ML IVPB IV SCH (21:06)
[2023-05-23] MEDS ORDERED: NON-FORMULARY ITEM (Insulin Degludec [Tresiba Flextouch U-200] 200 UNIT/ML Insuln.Pen) SQ SCH (22:00)
[2023-05-23] MEDS: NORCO 10-325 MG PO PRN (22:52)
[2023-05-23] MEDS ORDERED: NORCO 10-325 MG ONE (22:52)
[2023-05-24] MEDS ORDERED: NORCO 10-325 MG ONE ×2 (03:02→06:45)
[2023-05-24 04:15] LABS: Hematocrit 32.7 % (42-50); Hemoglobin 11.2 g/dL (12.5-18.0); Mean Cell Volume 86.1 fL (78-100); Mean Corpuscular Hemoglobin 29.5 pg (26-32); Mean Corpuscular Hgb Concent. 34.3 g/dL (32-36); Mean Platelet Volume 9.6 fL (7.5-11.0); Platelet Count 165 x10^3/uL (150-450); Red Cell Distribution Width 14.8 % (11.5-14.0); White Blood Count 5.2 x10^3/uL (4.0-10.5)
[2023-05-24 05:22] LABS: ALBUMIN 3.5 g/dL (3.5-5.0); BILIRUBIN,TOTAL 0.5 mg/dL (0.2-1.3); Calcium 8.6 mg/dL (8.4-10.2); Creatinine 1 0.99 mg/dL (0.66-1.25); EST GLOMERULAR FILTRATION RATE 82.5 ML/MIN; Potassium 4.6 mmol/L (3.5-5.1); Total Protein 7.6 g/dL (6.3-8.2)
[2023-05-24] MEDS: Apresoline 25 MG TABLET PO SCH (08:22)
--- NOTE | 2023-05-24 10:57 | XRAY ---
One minute and 27 seconds of fluoroscopy was used in surgery for a right hip surgery for fracture.
[2023-05-24] MEDS: Lantus Insulin SQ SCH (11:15)
--- NOTE | 2023-05-24 11:20 | PCM.NOTE ---
Date and Time: 05/24/23 1054 OBJECTIVE DATA Vital Signs: Vital Signs - 24 hr Temp Pulse Resp BP Pulse Ox 05/24/23 08:00 97.1 F 79 19 149/66 94 L 05/24/23 04:00 97.8 F 90 20 164/85 96 05/24/23 00:00 97.9 F 95 H 20 137/67 96 05/23/23 20:00 98.0 F 91 H 20 135/81 95 05/23/23 18:15 97.6 F 69 17 154/55 93 L 05/23/23 17:15 97.6 F 69 17 165/77 92 L 05/23/23 16:45 97.6 F 64 17 167/74 92 L 05/23/23 16:15 97.4 F 66 17 186/79 95 05/23/23 16:00 97.5 F 62 19 152/67 95 05/23/23 15:45 97.8 F 62 17 167/74 92 L 05/23/23 15:30 97.6 F 69 17 171/77 93 L 05/23/23 12:00 97.5 F 67 19 156/72 94 L 05/23/23 11:56 97.5 F 62 19 152/67 95 Pain Assessment - Last Documented Pain Intensity 5 Pain Scale Used 0-10 Pain Scale Intake and Output: Intake & Output 05/21/23 05/22/23 05/23/23 05/24/23 11:59 11:59 11:59 11:59 Intake Total 600 3423 Output Total 1380 1850 Balance -780 1573 Weight 111 kg Lab Results: Lab Results-Last 24 Hours 05/23/23 05/23/23 05/23/23 Range/Units 11:24 16:44 21:16 WBC (4.0-10.5) x10^3/uL RBC (4.1-5.6) x10^6/uL Hgb (12.5-18.0) g/dL Hct (42-50) % MCV (78-100) fL MCH (26-32) pg MCHC (32-36) g/dL RDW (11.5-14.0) % Plt Count (150-450) x10^3/uL MPV (7.5-11.0) fL Sodium (137-145) mmol/L Potassium (3.5-5.1) mmol/L Chloride (98-107) mmol/L Carbon Dioxide (22-30) mmol/L Anion Gap (5-15) MEQ/L BUN (9-20) mg/dL Creatinine (0.66-1.25) mg/dL Estimated GFR ML/MIN Glucose (74-106) mg/dL POC Glucometer 148 H 251 H 361 H (74 to 106) mg/dL Hemoglobin A1c (4.5-6.0) % Calcium (8.4-10.2) mg/dL Total Bilirubin (0.2-1.3) mg/dL AST (17-59) U/L ALT (0-50) U/L Alkaline Phosphatase (38-126) U/L Serum Total Protein (6.3-8.2) g/dL Albumin (3.5-5.0) g/dL 05/24/23 05/24/23 05/24/23 Range/Units 04:10 04:10 04:10 WBC 5.2 (4.0-10.5) x10^3/uL RBC 3.80 L (4.1-5.6) x10^6/uL Hgb 11.2 L (12.5-18.0) g/dL Hct 32.7 L (42-50) % MCV 86.1 (78-100) fL MCH 29.5 (26-32) pg MCHC 34.3 (32-36) g/dL RDW 14.8 H (11.5-14.0) % Plt Count 165 (150-450) x10^3/uL MPV 9.6 (7.5-11.0) fL Sodium 131 L (137-145) mmol/L Potassium 4.6 (3.5-5.1) mmol/L Chloride 101 (98-107) mmol/L Carbon Dioxide 23 (22-30) mmol/L Anion Gap 12.0 (5-15) MEQ/L BUN 15 (9-20) mg/dL Creatinine 0.99 (0.66-1.25) mg/dL Estimated GFR 82.5 ML/MIN Glucose 299 H (74-106) mg/dL POC Glucometer (74 to 106) mg/dL Hemoglobin A1c 6.40 H (4.5-6.0) % Calcium 8.6 (8.4-10.2) mg/dL Total Bilirubin 0.50 (0.2-1.3) mg/dL AST 28 (17-59) U/L ALT 23 (0-50) U/L Alkaline Phosphatase 70 (38-126) U/L Serum Total Protein 7.6 (6.3-8.2) g/dL Albumin 3.5 (3.5-5.0) g/dL 05/24/23 Range/Units 07:52 WBC (4.0-10.5) x10^3/uL RBC (4.1-5.6) x10^6/uL Hgb (12.5-18.0) g/dL Hct (42-50) % MCV (78-100) fL MCH (26-32) pg MCHC (32-36) g/dL RDW (11.5-14.0) % Plt Count (150-450) x10^3/uL MPV (7.5-11.0) fL Sodium (137-145) mmol/L Potassium (3.5-5.1) mmol/L Chloride (98-107) mmol/L Carbon Dioxide (22-30) mmol/L Anion Gap (5-15) MEQ/L BUN (9-20) mg/dL Creatinine (0.66-1.25) mg/dL Estimated GFR ML/MIN Glucose (74-106) mg/dL POC Glucometer 288 H (74 to 106) mg/dL Hemoglobin A1c (4.5-6.0) % Calcium (8.4-10.2) mg/dL Total Bilirubin (0.2-1.3) mg/dL AST (17-59) U/L ALT (0-50) U/L Alkaline Phosphatase (38-126) U/L Serum Total Protein (6.3-8.2) g/dL Albumin (3.5-5.0) g/dL Radiology Exams: Radiology Procedures Category Date Time Status CHEST 1 VIEW (PORTABLE) Stat Exams 05/22/23 19:34 Completed FLUOROSCOPY UP TO 1 HR Routine Exams 05/23/23 11:59 Taken HAND (2 VIEW) Routine Exams 05/22/23 22:29 Completed HIP UNI (2V) INCL PEL IF DONE Routine Exams 05/23/23 11:58 Completed HIP UNI (2V) INCL PEL IF DONE Stat Exams 05/22/23 15:17 Completed LOWER EXTREMITY WO CONTRAST [CT] Stat Exams 05/22/23 15:47 Completed PELVIS WITHOUT CONTRAST [CT] Stat Exams 05/22/23 15:47 Completed VENOUS UNILAT/LIMITED EXTREMIT [US] Routine Exams 05/23/23 22:30 Completed
--- NOTE | 2023-05-24 12:30 | PCM.NOTE ---
Date and Time: 05/24/23 1226 Subjective Assessment: 05/23/23 is a 68 year old male with a history CIDP and DM. He presented to the ER on 05/22/23 with persistent right hip pain after a fall 4 days prior to presentation. The pain his constant and has 10/10 intensity. With pain medication pain reduced to 4/10. He reports he had fallen on to his right side, in his bathroom, at the time of the injury. In the ED, the workup revealed a nondisplaced right femur fracture. The patient also has reported dysuria and pyuria for approximately 4 days. No fever is reported. In the ED he also reported some numbness in his 4th and 5th digits on his right hand. Hand XR negative for acute process. Orthopedic surgery evaluated pt this morning and will have surgery today. No chest pain, cough or orthopnea is reported. Since his fall he has had some mild right leg edema. Venous duplex completed today with results pending. Antibiotics started for a UTI with urine culture pending. Pt denies any further concerns at this time. 05/24/23 Pt sitting up in the chair. He explains she feels much better since having surgery yesterday. Pain is well controlled. He did not do well with PT today. It was recommended he go to OP rehab and he is not willing to do so at this time. Case management and ortho to discuss further with pt. He is refusing S/S insulin. Discussed with pt in detail the importance of keeping his glucose controlled and healing delays if not well controlled. - Review of Systems Constitutional: No Fever, No Chills Eyes: No Symptoms Ears, Nose, & Throat: No Symptoms Respiratory: No Cough, No Short Of Breath Cardiac: No Chest Pain, No Edema, No Syncope Abdominal/Gastrointestinal: No Abdominal Pain, No Nausea, No Vomiting, No Diarrhea Genitourinary Symptoms: No Dysuria Musculoskeletal: No Back Pain, No Neck Pain Skin: Other (incision R femur lateral aspect), No Rash Neurological: No Dizziness, No Focal Weakness, No Sensory Changes Psychological: No Symptoms Endocrine: No Symptoms Hematologic/Lymphatic: No Symptoms Immunological/Allergic: No Symptoms Objective Exam General Appearance: no apparent distress, alert Neurologic Exam: alert, oriented x 3, cooperative, normal mood/affect, nml cerebellar function, sensation nml, No motor deficits Skin Exam: normal color, warm, dry Eye Exam: PERRL, EOMI, eyes nml inspection Ears, Nose, Throat Exam: normal ENT inspection, pharynx normal, moist mucous membranes Neck Exam: normal inspection, non-tender, supple, full range of motion Respiratory Exam: normal breath sounds, lungs clear, No respiratory distress Cardiovascular Exam: regular rate/rhythm, normal heart sounds Gastrointestinal/Abdomen Exam: soft, No tenderness, No mass Extremity Exam: normal inspection, normal range of motion, other (incision R femur lateral aspect) Back Exam: normal inspection, normal range of motion, No CVA tenderness, No vertebral tenderness Male Genitalia Exam: deferred Rectal Exam: deferred OBJECTIVE DATA Vital Signs: Vital Signs - 24 hr Temp Pulse Resp BP Pulse Ox 05/24/23 11:51 97.1 F 70 16 180/84 96 05/24/23 08:00 97.1 F 79 19 149/66 94 L 05/24/23 04:00 97.8 F 90 20 164/85 96 05/24/23 00:00 97.9 F 95 H 20 137/67 96 05/23/23 20:00 98.0 F 91 H 20 135/81 95 05/23/23 18:15 97.6 F 69 17 154/55 93 L 05/23/23 17:15 97.6 F 69 17 165/77 92 L 05/23/23 16:45 97.6 F 64 17 167/74 92 L 05/23/23 16:15 97.4 F 66 17 186/79 95 05/23/23 16:00 97.5 F 62 19 152/67 95 05/23/23 15:45 97.8 F 62 17 167/74 92 L 05/23/23 15:30 97.6 F 69 17 171/77 93 L Pain Assessment - Last Documented Pain Intensity 6 Pain Scale Used 0-10 Pain Scale Intake and Output: Intake & Output 05/22/23 05/23/23 05/24/23 05/25/23 11:59 11:59 11:59 11:59 Intake Total 600 3423 Output Total 1380 1850 Balance -780 1573 Weight 111 kg Lab Results: Lab Results-Last 24 Hours 05/23/23 05/23/23 05/24/23 Range/Units 16:44 21:16 04:10 WBC (4.0-10.5) x10^3/uL RBC (4.1-5.6) x10^6/uL Hgb (12.5-18.0) g/dL Hct (42-50) % MCV (78-100) fL MCH (26-32) pg MCHC (32-36) g/dL RDW (11.5-14.0) % Plt Count (150-450) x10^3/uL MPV (7.5-11.0) fL Sodium (137-145) mmol/L Potassium (3.5-5.1) mmol/L Chloride (98-107) mmol/L Carbon Dioxide (22-30) mmol/L Anion Gap (5-15) MEQ/L BUN (9-20) mg/dL Creatinine (0.66-1.25) mg/dL Estimated GFR ML/MIN Glucose (74-106) mg/dL POC Glucometer 251 H 361 H (74 to 106) mg/dL Hemoglobin A1c 6.40 H (4.5-6.0) % Calcium (8.4-10.2) mg/dL Total Bilirubin (0.2-1.3) mg/dL AST (17-59) U/L ALT (0-50) U/L Alkaline Phosphatase (38-126) U/L Serum Total Protein (6.3-8.2) g/dL Albumin (3.5-5.0) g/dL 05/24/23 05/24/23 05/24/23 Range/Units 04:10 04:10 07:52 WBC 5.2 (4.0-10.5) x10^3/uL RBC 3.80 L (4.1-5.6) x10^6/uL Hgb 11.2 L (12.5-18.0) g/dL Hct 32.7 L (42-50) % MCV 86.1 (78-100) fL MCH 29.5 (26-32) pg MCHC 34.3 (32-36) g/dL RDW 14.8 H (11.5-14.0) % Plt Count 165 (150-450) x10^3/uL MPV 9.6 (7.5-11.0) fL Sodium 131 L (137-145) mmol/L Potassium 4.6 (3.5-5.1) mmol/L Chloride 101 (98-107) mmol/L Carbon Dioxide 23 (22-30) mmol/L Anion Gap 12.0 (5-15) MEQ/L BUN 15 (9-20) mg/dL Creatinine 0.99 (0.66-1.25) mg/dL Estimated GFR 82.5 ML/MIN Glucose 299 H (74-106) mg/dL POC Glucometer 288 H (74 to 106) mg/dL Hemoglobin A1c (4.5-6.0) % Calcium 8.6 (8.4-10.2) mg/dL Total Bilirubin 0.50 (0.2-1.3) mg/dL AST 28 (17-59) U/L ALT 23 (0-50) U/L Alkaline Phosphatase 70 (38-126) U/L Serum Total Protein 7.6 (6.3-8.2) g/dL Albumin 3.5 (3.5-5.0) g/dL 05/24/23 Range/Units 11:38 WBC (4.0-10.5) x10^3/uL RBC (4.1-5.6) x10^6/uL Hgb (12.5-18.0) g/dL Hct (42-50) % MCV (78-100) fL MCH (26-32) pg MCHC (32-36) g/dL RDW (11.5-14.0) % Plt Count (150-450) x10^3/uL MPV (7.5-11.0) fL Sodium (137-145) mmol/L Potassium (3.5-5.1) mmol/L Chloride (98-107) mmol/L Carbon Dioxide (22-30) mmol/L Anion Gap (5-15) MEQ/L BUN (9-20) mg/dL Creatinine (0.66-1.25) mg/dL Estimated GFR ML/MIN Glucose (74-106) mg/dL POC Glucometer 300 H (74 to 106) mg/dL Hemoglobin A1c (4.5-6.0) % Calcium (8.4-10.2) mg/dL Total Bilirubin (0.2-1.3) mg/dL AST (17-59) U/L ALT (0-50) U/L Alkaline Phosphatase (38-126) U/L Serum Total Protein (6.3-8.2) g/dL Albumin (3.5-5.0) g/dL Radiology Exams: Radiology Procedures Category Date Time Status CHEST 1 VIEW (PORTABLE) Stat Exams 05/22/23 19:34 Completed FLUOROSCOPY UP TO 1 HR Routine Exams 05/23/23 11:59 Completed HAND (2 VIEW) Routine Exams 05/22/23 22:29 Completed HIP UNI (2V) INCL PEL IF DONE Routine Exams 05/23/23 11:58 Completed HIP UNI (2V) INCL PEL IF DONE Stat Exams 05/22/23 15:17 Completed LOWER EXTREMITY WO CONTRAST [CT] Stat Exams 05/22/23 15:47 Completed PELVIS WITHOUT CONTRAST [CT] Stat Exams 05/22/23 15:47 Completed VENOUS UNILAT/LIMITED EXTREMIT [US] Routine Exams 05/23/23 22:30 Completed Assessment/Plan (1) Nondisplaced fracture of right femur Current Visit: Yes Status: Acute Code(s): S72.91XA - UNSP FRACTURE OF RIGHT FEMUR, INIT FOR CLOS FX (2) Right hip pain Current Visit: Yes Status: Acute Code(s): M25.551 - PAIN IN RIGHT HIP (3) Hyponatremia Current Visit: Yes Status: Acute Code(s): E87.1 - HYPO-OSMOLALITY AND HYPONA TREMIA (4) Urinary tract infection Current Visit: Yes Status: Acute Code(s): N39.0 - URINARY TRACT INFECTION, SITE NOT SPECIFIED (5) Edema of right lower extremity Current Visit: Yes Status: Acute Code(s): R60.0 - LOCALIZED EDEMA (6) Type II diabetes mellitus Current Visit: Yes Status: Chronic (7) HTN (hypertension) Current Visit: Yes Status: Chronic Code(s): I10 - ESSENTIAL (PRIMARY) HYPERTENSION (8) Obesity (BMI 30.0-34.9) Current Visit: Yes Status: Chronic Code(s): E66.9 - OBESITY, UNSPECIFIED (9) Chronic inflammatory demyelinating polyneuropathy Current Visit: Yes Status: Chronic Code(s): G61.81 - CHRONIC INFLAMMATORY DEMYELINATING POLYNEURITIS (10) Depression Current Visit: Yes Status: Chronic Assessment & Plan: (1) Nondisplaced fracture of right femur Current Visit: Yes Status: Acute Assessment & Plan: - Ortho eval today- going to surgery - Will need rehab at d/c per ortho - case management to set up d/c plan - PT/OT - Protonix - pain control - CT pelvis 05/22 Impression: 1. Nondisplaced healing right subcapital femur fracture. 2. Osteopenia and degenerative spurring. 3. Urinary bladder circumferential wall thickening. Rule out cystitis. 4. Small fatty left inguinal hernia Code(s): S72.91XA - UNSP FRACTURE OF RIGHT FEMUR, INIT FOR CLOS FX (2) Right hip pain Current Visit: Yes Status: Acute Assessment & Plan: - narcotic pain control - Right hip XR 05/23 Intraoperative fluoroscopy provided for 1.27 minute. 14 digital spot images submitted for interpretation ultimately demonstrates 3 orthopedic screws fixating subcapital fracture. Correlate with intraoperative findings/report. Code(s): M25.551 - PAIN IN RIGHT HIP (3) Hyponatremia Current Visit: Yes Status: Acute Assessment & Plan: - Na+ 135 mild - IVF 05/24 - Na+ 131 Code(s): E87.1 - HYPO-OSMOLALITY AND HYPONATREMIA (4) Urinary tract infection Current Visit: Yes Status: Acute Assessment & Plan: - UC pending - rocephin IV 05/24 - IVF - UC negative - Antibiotics stopped Code(s): N39.0 - URINARY TRACT INFECTION, SITE NOT SPECIFIED (5) Edema of right lower extremity Current Visit: Yes Status: Acute Assessment & Plan: - ? 05/12 right hip fx - venous duplex 05/23/23- negative for DVT Code(s): R60.0 - LOCALIZED EDEMA (6) Type II diabetes mellitus Current Visit: Yes Status: Chronic Assessment & Plan: - accucheck ac/hs - humalog s/s - Lantus 80 units HS - A1c 01/25- 8.53 - A1c - pending 05/24 - A1C 6.40- controlled - Lantus changed to 50 units BID - Humalog d/c'd as pt refused (7) HTN (hypertension) Current Visit: Yes Status: Chronic Assessment & Plan: - controlled - continue home meds Code(s): I10 - ESSENTIAL (PRIMARY) HYPERTENSION (8) Obesity (BMI 30.0-34.9) Current Visit: Yes Status: Chronic Assessment & Plan: - advised diet and exercise control Code(s): E66.9 - OBESITY, UNSPECIFIED (9) Chronic inflammatory demyelinating polyneuropathy Current Visit: Yes Status: Chronic Assessment & Plan: - receives Op infusions for this - adds to complexity Code(s): G61.81 - CHRONIC INFLAMMATORY DEMYELINATING POLYNEURITIS (10) Depression Current Visit: Yes Status: Chronic Assessment & Plan: - stable - continue celexa VTE: SCD PPI: Protonix Next of Kin: Karen Garcia [phone] D/c plan 2-3 days Code status: Full Code(s): F32.A - DEPRESSION, UNSPECIFIED
[2023-05-24] MEDS: Lantus Insulin SQ ONE ×2 (17:26→23:13)
[2023-05-24] MEDS ORDERED: Lantus Insulin SQ SCH (17:30)
[2023-05-24] MEDS ORDERED: Lantus Insulin ONE (23:11)
[2023-05-25 05:28] LABS: Hematocrit 29.3 % (42-50); Hemoglobin 9.9 g/dL (12.5-18.0); Mean Cell Volume 87.5 fL (78-100); Mean Corpuscular Hemoglobin 29.6 pg (26-32); Mean Corpuscular Hgb Concent. 33.8 g/dL (32-36); Mean Platelet Volume 9.7 fL (7.5-11.0); Platelet Count 155 x10^3/uL (150-450); Red Blood Count 3.35 x10^6/uL (4.1-5.6); Red Cell Distribution Width 15.1 % (11.5-14.0); White Blood Count 5.4 x10^3/uL (4.0-10.5)
[2023-05-25 05:57] LABS: ALBUMIN 3.6 g/dL (3.5-5.0); ANION GAP 9.2 MEQ/L (5-15); BILIRUBIN,TOTAL 0.3 mg/dL (0.2-1.3); Calcium 8.4 mg/dL (8.4-10.2); Creatinine 1 1.09 mg/dL (0.66-1.25); EST GLOMERULAR FILTRATION RATE 73.5 ML/MIN; Potassium 3.9 mmol/L (3.5-5.1); Total Protein 7.4 g/dL (6.3-8.2)
[2023-05-25] MEDS: LEVOFLOXACIN 750MG/150ML D5W 750 MG/150 ML BAG IV SCH (09:18)
[2023-05-25] MEDS ORDERED: ROCEPHIN 1 GM / 100 ML NaCl 1 GM/100 ML IVPB IV SCH (10:00)
[2023-05-25 11:58] VITALS: BP 175/80; PULSE 67; RESP 18; TEMP 96.3; O2SAT 96
--- NOTE | 2023-05-25 13:51 | PCM.DS ---
Discharge Summary Date of Admission: 05/22/23 20:23 Date of Discharge: 05/25/23 Admitting Physician: MIKE CRAWFORD MD Consults: Consults on Case 05/22/23 21:05 Consult Ortho ROUTINE Primary Care Provider: PERRI MONROY Allergies Allergies Influenza Virus Vaccines Allergy (Severe, Verified 05/22/23 15:21) Iodinated Contrast Media [Iodinated Contrast- Oral and IV Dye] Allergy (Severe, Verified 05/22/23 15:21) Anaphylactic Reaction states " my throat closed up" Hospital Summary - Hospital Course Hospital Course: 05/23/23 is a 68 year old male with a history CIDP and DM. He presented to the ER on 05/22/23 with persistent right hip pain after a fall 4 days prior to presentation. The pain his constant and has 10/10 intensity. With pain medication pain reduced to 4/10. He reports he had fallen on to his right side, in his bathroom, at the time of the injury. In the ED, the workup revealed a nondisplaced right femur fracture. The patient also has reported dysuria and pyuria for approximately 4 days. No fever is reported. In the ED he also reported some numbness in his 4th and 5th digits on his right hand. Hand XR negative for acute process. Orthopedic surgery evaluated pt this morning and will have surgery today. No chest pain, cough or orthopnea is reported. Since his fall he has had some mild right leg edema. Venous duplex completed today with results pending. Antibiotics started for a UTI with urine culture pending. Pt denies any further concerns at this time. 05/24/23 Pt sitting up in the chair. He explains she feels much better since having surgery yesterday. Pain is well controlled. He did not do well with PT today. It was recommended he go to OP rehab and he is not willing to do so at this time. Case management and ortho to discuss further with pt. He is refusing S/S insulin. Discussed with pt in detail the importance of keeping his glucose controlled and healing delays if not well controlled. 05/25/23 Pt resting in chair. He is going home today. Ortho is ok with dc. Pt however has changed his mind about rehab. Ortho also made aware of this by CM. He states he does not want this and it will not work for him. Explained he does have a UTI and will need to f/u OP with PCP after 2 weeks of antibiotics are completed. Family is willing to drive him to appointments per CM. Pt is ready to d/c and Cm is setting up for needs at home. Pain is well controlled. He denies CP, SOB, abd. pain, N/V/D. - Vitals & Intake/Output Vital Signs: Vital Signs Temperature 96.3 F 05/25/23 11:57 Pulse Rate 67 05/25/23 11:57 Respiratory Rate 18 05/25/23 11:57 Blood Pressure 175/80 05/25/23 11:57 O2 Sat by Pulse Oximetry 96 05/25/23 11:57 Intake & Output: Intake & Output 05/23/23 05/24/23 05/25/23 05/26/23 11:59 11:59 11:59 11:59 Intake Total 600 3423 1560 240 Output Total 1380 1850 2100 Balance -780 1573 -540 240 Weight 111 kg - Lab Result Diagrams: 05/25/23 05:22 05/25/23 05:22 Lab Results-Last 24 Hrs: Lab Results-Last 24 Hours 05/24/23 05/24/23 05/25/23 Range/Units 16:12 21:56 05:22 WBC 5.4 (4.0-10.5) x10^3/uL RBC 3.35 L (4.1-5.6) x10^6/uL Hgb 9.9 L (12.5-18.0) g/dL Hct 29.3 L (42-50) % MCV 87.5 (78-100) fL MCH 29.6 (26-32) pg MCHC 33.8 (32-36) g/dL RDW 15.1 H (11.5-14.0) % Plt Count 155 (150-450) x10^3/uL MPV 9.7 (7.5-11.0) fL Sodium (137-145) mmol/L Potassium (3.5-5.1) mmol/L Chloride (98-107) mmol/L Carbon Dioxide (22-30) mmol/L Anion Gap (5-15) MEQ/L BUN (9-20) mg/dL Creatinine (0.66-1.25) mg/dL Estimated GFR ML/MIN Glucose (74-106) mg/dL POC Glucometer 321 H 272 H (74 to 106) mg/dL Calcium (8.4-10.2) mg/dL Total Bilirubin (0.2-1.3) mg/dL AST (17-59) U/L ALT (0-50) U/L Alkaline Phosphatase (38-126) U/L Serum Total Protein (6.3-8.2) g/dL Albumin (3.5-5.0) g/dL 05/25/23 05/25/23 05/25/23 Range/Units 05:22 07:52 11:20 WBC (4.0-10.5) x10^3/uL RBC (4.1-5.6) x10^6/uL Hgb (12.5-18.0) g/dL Hct (42-50) % MCV (78-100) fL MCH (26-32) pg MCHC (32-36) g/dL RDW (11.5-14.0) % Plt Count (150-450) x10^3/uL MPV (7.5-11.0) fL Sodium 136 L (137-145) mmol/L Potassium 3.9 (3.5-5.1) mmol/L Chloride 101 (98-107) mmol/L Carbon Dioxide 29 (22-30) mmol/L Anion Gap 9.2 (5-15) MEQ/L BUN 21 H (9-20) mg/dL Creatinine 1.09 (0.66-1.25) mg/dL Estimated GFR 73.5 ML/MIN Glucose 186 H (74-106) mg/dL POC Glucometer 146 H 161 H (74 to 106) mg/dL Calcium 8.4 (8.4-10.2) mg/dL Total Bilirubin 0.30 (0.2-1.3) mg/dL AST 24 (17-59) U/L ALT 16 (0-50) U/L Alkaline Phosphatase 56 (38-126) U/L Serum Total Protein 7.4 (6.3-8.2) g/dL Albumin 3.6 (3.5-5.0) g/dL Micro Results-Entire Visit: Microbiology 05/22/23 19:40 Urine Culture - Final Clean Catch Midstream Enterococcus Faecalis Accuchecks Date 05/25/23 Date 05/25/23 Date 05/24/23 Time 11:30 Time 07:57 - Radiology Exams Ordered Rad Exams-Entire Visit: Radiology Procedures Category Date Time Status VENOUS UNILAT/LIMITED EXTREMIT [US] Routine Exams 05/23/23 22:30 Completed - Procedures and Test Procedures and Tests throughout Hospitalization: Therapy Orders & Screens 05/22/23 20:01 EKG REPEAT IN AM Comment: Diagnosis: Fracture Right Hip 05/22/23 21:01 OT Screen per Nursing Assess ONCE Comment: Protocol Order Physician Instructions: Greater than 3 points order OT Admission Screening Reason For Exam: Triggered on Admission Diagnosis: FRACTURE RIGHT HIP Open Wound/Cellutlitis/Pressure Ulcers: No Acute Fx/ORIF/Change in wt bearing status: Yes Severe MUSCULOSKELETAL pain: Yes ADL Dysfunction: No Acute CVA w/Hemiparesis/Hemiplegia: No Decreased Functional Mobility/Strength: Yes Sprain/Strain: No Acute Post-op Mobility Dysfunction: No Total Points: 11 PT Screen per Nursing Assess ONCE Comment: Protocol Order Physician Instructions: Greater than 3 points order PT Admission Screenin Reason For Exam: Triggered on Admission Diagnosis: FRACTURE RIGHT HIP Open Wound/Cellutlitis/Pressure Ulcers: No Acute Fx/ORIF/Change in wt bearing status: Yes Severe MUSCULOSKELETAL pain: Yes ADL Dysfunction: No Acute CVA w/Hemiparesis/Hemiplegia: No Decreased Functional Mobility/Strength: Yes Sprain/Strain: No Acute Post-op Mobility Dysfunction: No Total Points: 11 05/23/23 16:30 PT Eval & Treat (MD Order) ONCE Reason for Eval:: P.T. bed>chair transfers, teach standby pivot.post op Diagnosis: FRACTURE RIGHT HIP 05/23/23 23:22 Incentive Spirometry ROUTINE Comment: Diagnosis: FRACTURE RIGHT HIP Discharge Exam General Appearance: no apparent distress, alert Neurologic Exam: alert, oriented x 3, cooperative, normal mood/affect, nml cerebellar function, sensation nml, No motor deficits Eye Exam: PERRL, EOMI, eyes nml inspection Ears, Nose, Throat Exam: normal ENT inspection, pharynx normal, moist mucous membranes Neck Exam: normal inspection, non-tender, supple, full range of motion Respiratory Exam: normal breath sounds, lungs clear, No respiratory distress Cardiovascular Exam: regular rate/rhythm, normal heart sounds Gastrointestinal/Abdomen Exam: soft, No tenderness, No mass Male Genitalia Exam: deferred Rectal Exam: deferred Back Exam: normal inspection, normal range of motion, No CVA tenderness, No vertebral tenderness Extremity Exam: normal inspection, normal range of motion Skin Exam: normal color, warm, dry Final Diagnosis/Problem List - Final Discharge Diagnosis/Problem (1) Nondisplaced fracture of right femur Current Visit: Yes Status: Acute Code(s): S72.91XA - UNSP FRACTURE OF RIGHT FEMUR, INIT FOR CLOS FX (2) Right hip pain Current Visit: Yes Status: Acute Code(s): M25.551 - PAIN IN RIGHT HIP (3) Hyponatremia Current Visit: Yes Status: Acute Code(s): E87.1 - HYPO-OSMOLALITY AND HYPONATREMIA (4) Urinary tract infection Current Visit: Yes Status: Acute Code(s): N39.0 - URINARY TRACT INFECTION, SITE NOT SPECIFIED (5) Edema of right lower extremity Current Visit: Yes Status: Acute Code(s): R60.0 - LOCALIZED EDEMA (6) Type II diabetes mellitus Current Visit: Yes Status: Chronic (7) HTN (hypertension) Current Visit: Yes Status: Chronic Code(s): I10 - ESSENTIAL (PRIMARY) HYPERTENSION (8) Obesity (BMI 30.0-34.9) Current Visit: Yes Status: Chronic Code(s): E66.9 - OBESITY, UNSPECIFIED (9) Chronic inflammatory demyelinating polyneuropathy Current Visit: Yes Status: Chronic Code(s): G61.81 - CHRONIC INFLAMMATORY DEMYELINATING POLYNEURITIS (10) Depression Current Visit: Yes Status: Chronic Assessment & Plan: (1) Nondisplaced fracture of right femur Current Visit: Yes Status: Acute Assessment & Plan: - Ortho eval today- going to surgery - Will need rehab at d/c per ortho - case management to set up d/c plan - PT/OT - Protonix - pain control - CT pelvis 05/22 Impression: 1. Nondisplaced healing right subcapital femur fracture. 2. Osteopenia and degenerative spurring. 3. Urinary bladder circumferential wall thickening. Rule out cystitis. 4. Small fatty left inguinal hernia 05/25 - POD #2 Code(s): S72.91XA - UNSP FRACTURE OF RIGHT FEMUR, INIT FOR CLOS FX (2) Right hip pain Current Visit: Yes Status: Acute Assessment & Plan: - narcotic pain control - Right hip XR 05/23 Intraoperative fluoroscopy provided for 1.27 minute. 14 digital spot images submitted for interpretation ultimately demonstrates 3 orthopedic screws fixating subcapital fracture. Correlate with intraoperative findings/report. Code(s): M25.551 - PAIN IN RIGHT HIP (3) Hyponatremia Current Visit: Yes Status: Acute Assessment & Plan: - Na+ 135 mild - IVF 05/24 - Na+ 131 2/ - Na+ 136- improved Code(s): E87.1 - HYPO-OSMOLALITY AND HYPONATREMIA (4) Urinary tract infection Current Visit: Yes Status: Acute Assessment & Plan: - UC pending - rocephin IV 05/24 - IVF 05/25 - UC + for enterococcus faecalis - Levaquin started and will continue OP for 2 weeks - will f/u UA with C&S Code(s): N39.0 - URINARY TRACT INFECTION, SITE NOT SPECIFIED (5) Edema of right lower extremity Current Visit: Yes Status: Acute Assessment & Plan: - ? 05/12 right hip fx - venous duplex 05/23/23- negative for DVT Code(s): R60.0 - LOCALIZED EDEMA (6) Type II diabetes mellitus Current Visit: Yes Status: Chronic Assessment & Plan: - accucheck ac/hs - humalog s/s - Lantus 80 units HS - A1c 01/25- 8.53 - A1c - pending 05/24 - A1C 6.40- controlled - Lantus changed to 50 units BID - Humalog d/c'd as pt refused (7) HTN (hypertension) Current Visit: Yes Status: Chronic Assessment & Plan: - controlled - continue home meds Code(s): I10 - ESSENTIAL (PRIMARY) HYPERTENSION (8) Obesity (BMI 30.0-34.9) Current Visit: Yes Status: Chronic Assessment & Plan: - advised diet and exercise control Code(s): E66.9 - OBESITY, UNSPECIFIED (9) Chronic inflammatory demyelinating polyneuropathy Current Visit: Yes Status: Chronic Assessment & Plan: - receives Op infusions for this - adds to complexity Code(s): G61.81 - CHRONIC INFLAMMATORY DEMYELINATING POLYNEURITIS (10) Depression Current Visit: Yes Status: Chronic Assessment & Plan: - stable - continue celexa Code(s): F32.A - DEPRESSION, UNSPECIFIED - Discharge Discharge Date: 05/25/23 Disposition: Home, Self-Care Condition: Stable Prescriptions: New Aspirin EC 325 mg [Ecotrin 325 MG] 325 mg PO BID 30 Days #60 tablet Continue Insulin Degludec [Tresiba Flextouch U-200] 80 unit SQ HS Finasteride 5 mg [Proscar 5 MG] 5 mg PO HS carvediloL [Carvedilol] 25 mg PO BID Amlodipine Besylate [Norvasc] 10 mg PO DAILY Acetaminophen [Tylenol] 650 mg PO Q4HPRN PRN #1 tablet PRN Reason: Mild To Moderate Pain Tamsulosin HCl 0.4 mg [Flomax 0.4 MG] 1 tab PO HS Gabapentin 300 mg PO BID Citalopram Hydrobromide [Citalopram HBr] 20 mg PO DAILY Oxycodone HCl/Acetaminophen [Oxycodone-Acetaminophn 7.5-325] 7.5 mg PO TID Hydralazine HCl 75 mg PO Q8H Instructions: Hip fracture, Weight-Bearing Restrictions Additional Instructions: NON-WEIGHT BEARING TO YOUR RIGHT LEG CHANGE YOUR DRESSING EVERY OTHER DAY WITH 2X2 GAUZE AND CLEAR TEGADERM SHOWER ONLY TAKE ASPIRIN 325 MG TWO TIMES A DAY UNTIL 06/20/33, THEN TAKE 325 MG ONE TIME A DAY UNTIL DR. JOSEPH TELLS YOU TO STOP Follow up with: PERRI MONROY [Primary Care Provider] - 06/02/23 10:15 am DARIO DOSS NP [NON-STAFF PHY W/O PRIVILEGES] - 06/07/23 10:30 am Forms: Discharge Instructions
== END 2023-05-25 15:25 | disposition home or self-care (01) | DRG 493 ==
LOC: ED 14:56 → MED SURG 20:23
PROVIDERS: ADMIT Internal Medicine; ATTEND Internal Medicine
PROC: 0QHG34Z Insertion of Internal Fixation Device into Right Tibia, Percutaneous Approach (ICD-10-PCS; principal; 2023-05-23)
DX: S72.91XA Unspecified fracture of right femur, initial encounter for closed fracture (principal); E87.1 Hypo-osmolality and hyponatremia; N39.0 Urinary tract infection, site not specified; G61.81 Chronic inflammatory demyelinating polyneuritis; M25.551 Pain in right hip; R60.0 Localized edema; E11.9 Type 2 diabetes mellitus without complications; I10 Essential (primary) hypertension; E66.9 Obesity, unspecified; F32.A Depression, unspecified; W19.XXXA Unspecified fall, initial encounter; R20.0 Anesthesia of skin; Z79.899 Other long term (current) drug therapy; Z20.828 Contact with and (suspected) exposure to other viral communicable diseases
CPT/HCPCS: 36000; 36415; 64450; 71045; 72192; 73120; 73502; 73700; 76000; 76942; 80048; 80053; 81001; 82947; 83036; 83605; 85025; 85027; 85610; 85730; 87077; 87086; 87186; 93005; 93971; 96374; 99221; 99285; C1713; J0690; J0696; J1100; J1170; J1642; J1817; J1885; J1956; J2405; J2704; J2795; J3010; Q3014; A9270-GY

== ENCOUNTER 2023-08-23 10:03 | Day surgery (SDC) | payer MEDICARE ==
[2023-08-23] MEDS ORDERED: Sodium Chloride 0.9(Preservative Free) 10 ML IJ ONE (10:04)
[2023-08-23] MEDS ORDERED: Depo-Medrol 40 MG/ML IM ONE (10:04)
[2023-08-23] MEDS ORDERED: XYLOCAINE-MPF 1% 5ML SDV IJ ONE (10:04)
[2023-08-23] MEDS ORDERED: DIPRIVAN 200 MG/20 ML IV ONE (11:46)
[2023-08-23] MEDS ORDERED: BENADRYL 50 MG/ML ONE (11:50)
--- NOTE | 2023-08-23 13:05 | XRAY ---
Indication: Lumbar TOMEKA. Intraoperative fluoroscopy provided for 10 seconds. 2 digital spot image submitted for interpretation demonstrates posterior needle tip projecting posterior to lumbosacral junction interspace. Small amount of contrast injected for needle tip placement. Correlate with intraoperative findings/report.
--- NOTE | 2023-08-23 13:05 | XRAY ---
10 seconds of fluoroscopy was used in surgery for a lumbar TOMEKA.
[2023-08-23] MEDS ORDERED: Lactated Ringers 1,000 ML IV ONE (13:12)
== END 2023-08-23 12:22 | disposition home or self-care (01) ==
LOC: SDC-PAIN 10:03
PROVIDERS: ATTEND Psychiatry & Neurology Pain Medicine
DX: M54.16 Radiculopathy, lumbar region (principal); E11.9 Type 2 diabetes mellitus without complications
CPT/HCPCS: 62323; 72100; 77003; 82947; J1010; J1200; J1642; J2704; Q9966